=== PATIENT | female | born 1935 | race African-American/Black ===

== ENCOUNTER 2016-08-29 10:57 | Emergency (ER) | payer MEDICARE ==
--- NOTE | ~2016-08-29 | HP ---
History And Physical [place] [id number] [facility] [place]. [address] NAME: BLAYNE NICOLAS : 37 STATUS : ADM IN [facility]#: [id number] AGE: 80 ADM/REG DATE : 08/29/16 MR#: [id number] REPORT SERV DATE: 08/29/16 DICTATED BY: ANTONIETA MARTI DATE: 08/29/16 REPORT STATUS : Draft TRANSCRIBED BY: MODJason DATE: 08/29/16 DATE OF ADMISSION: 08/29/2016 This is a 80-year-old black female, who is a patient of ours at [facility]. She has end-stage renal disease. She gives a history on August 24 beginning with excess urination. Due to her renal status, she has had very little urination in the last several months but on the , began having more and then yesterday, noted a lot of blood in it. She also, over the last few days, has developed increasing pain, particularly in the left flank and left lower abdomen. She has had no temperature. She has a history of renal stones and she is also on aspirin 81 mg but no other anticoagulant. MEDICATIONS: Present medications include senna S two at bedtime; melatonin 3 mg 2 at bedtime; Zoloft 50 mg once a day; Xalatan eye drops 0.005% 1 drop in each eye at bedtime; tramadol 50 mg every 6 hours as needed; torsemide 100 mg daily on Thursday, , Thursday, and Thursday which are her nondialysis days; Renvela 800 mg t.i.d. with meals for chronic kidney disease; pantoprazole 40 mg once a day in the morning; MiraLAX 17 g in 8 ounces of liquid once a day for constipation; isosorbide mononitrate ER 30 mg 3 tablets by mouth every morning for heart disorder; glipizide 5 mg 1 before breakfast and one-half before supper; gabapentin 100 mg b.i.d. for neuropathy; donepezil 5 mg at bedtime; diltiazem 120 mg t.i.d.; clonidine patch 0.3 mg 1 patch applied every week on Thursday and then clonidine 0.1 mg p.o. daily as needed for blood pressure greater than 175/105; aspirin 81 mg daily; allopurinol 100 mg daily; and then her p.r.n. medicines include Artificial Tears, Ativan 0.5 daily as needed for anxiety; Nitrostat 0.4 under the tongue every 5 minutes up to 3 doses as needed for angina; Robitussin 5 to 10 mL every 6 to 8 hours as needed for cough; Tylenol 325 mg 1 to 2 three times a day as needed for leg pain; Zofran ODT 4 mg sublingual every 8 hours as needed for vomiting; and Voltaren 1% gel to apply 2 g to the most painful regions of the lower back and hips as needed b.i.d. 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 FAMILY HISTORY: Positive for hypertension, coronary artery disease, and diabetes. SURGICAL HISTORY: Includes the surgery for the vascular access. She has also had trigger finger surgery, tonsillectomy as a child, cataract surgery, complete hysterectomy, bilateral tubal ligation, prior to that she has had thyroidectomy and she has had a right hemicolectomy for benign reasons, pain related to, I believe a tubovillous adenoma and she has had a cholecystectomy. SOCIAL HISTORY: She is a former smoker. She is a . REVIEW OF SYSTEMS: History And Physical [address] [address] NAME: BLAYNE NICOLAS : 37 STATUS : ADM IN PAT#: [id number] AGE: 80 ADM/REG DATE : 08/29/16 MR#: [id number] REPORT SERV DATE: 08/29/16 DICTATED BY: ANTONIETA MARTI DATE: 08/29/16 REPORT STATUS : Draft TRANSCRIBED BY: JERRY DATE: 08/29/16 Besides that mentioned in the present illness, she has had no recent headaches or dysphagia or chest pain or shortness of breath or cough. She does have chronic pain now in her left hand and arm secondary to a neuropathy that has developed post vascular access surgery. She has had no nausea, vomiting, or diarrhea. She has bowel movements regularly due to the MiraLAX she is taking. She has had no recent falls. PHYSICAL EXAMINATION: VITAL SIGNS: In my clinic today, her blood pressure was 134/70, pulse rate 58, temperature 96.6, and O2 saturation 100% on room air and pain 9/10 in the left side of her abdomen. GENERAL: She is alert, conversant, clear speech, adequately hydrated. LUNGS: Clear. HEART: Regular rate and rhythm. She does have a port in the right chest wall. ABDOMEN: Soft with pain on deep palpation in the left lower quadrant. She has no rash either posteriorly or anteriorly on her abdomen or thorax or anywhere. She does have CVA tenderness with tapping on the left back. LAB DATA: [place] [address], and she is anemic with a hemoglobin of 9.2 and hematocrit of 29.2; the last one done in my center, her hemoglobin was 11 in June and hematocrit was 32. Her MCV presently is 73.4, the last one I have was 77.5 in April. Urinalysis in the office shows moderate amount of leukocytes, bloody urine, large amount of blood, moderate amount of bilirubin, large amount of ketones, and a lot of glucose; nitrite negative. IMAGING DATA: CT scan done in the emergency room on the day of admission shows a left renal mass and some significant changes in the lumbar spine, not thought to be metastatic. ASSESSMENT AND PLAN: 1. Left flank and abdominal pain of unknown cause, possibly secondary to this mass in the left kidney. We will consult Nephrology on this and proceed from there. 2. Hematuria. We will monitor H and H and check her bleeding studies and consider further consulted on that. 3. End-stage renal disease. We will attempt to get dialysis started at the hospital. 4. Hypertension presently well controlled. We will continue her torsemide, her diltiazem, and her clonidine patch. 5. Diabetes mellitus with both end-stage ophthalmic and renal disease. She has near blindness as well. Her diabetes has been well controlled on simple glipizide. We will monitor that in the hospital. 6. Anemia of chronic kidney disease with perhaps some new blood loss anemia from the hematuria. We will monitor this and treat as needed with replacement. 7. Coronary artery disease with history of diastolic CHF. She is on isosorbide, Nitrostat as needed; and has been on a baby aspirin, we will stop that for now. We will continue her pantoprazole presently. 8. Glaucoma. We will continue her Xalatan drops. 9. Gout. We will continue her allopurinol 100 mg a day. 10.Latent TB which we will try to get a complete history of but this was treated as an outpatient between December and March of this past year 2015. We will give appropriate analgesia and proceed with a workup as above. She is presently a Do Not Resuscitate History And Physical [address] [place]. [address] NAME: BLAYNE NICOLAS : 37 STATUS : ADM IN [facility]#: [id number] AGE: 80 ADM/REG DATE : 08/29/16 MR#: [id number] REPORT SERV DATE: 08/29/16 DICTATED BY: ANTONIETA MARTI DATE: 08/29/16 REPORT STATUS : Draft TRANSCRIBED BY: JERRY DATE: 08/29/16 with limited interventions. MARIAELENA/JERRY Antonieta Marti M.D. / [id number] CC: Aron Shafer M.D.
--- NOTE | ~2016-08-29 | CN ---
Consultation Report [facility] [address] [place]. [address] NAME: BLAYNE WATSON : 37 STATUS : DIS IN PAT#: [id number] AGE: 80 ADM/REG DATE : 08/29/16 MR#: [id number] REPORT SERV DATE: 09/01/16 DICTATED BY: LIU JORDAN DATE: 08/31/16 REPORT STATUS : Draft TRANSCRIBED BY: JERRY DATE: 08/31/16 DATE OF CONSULTATION: REASON FOR CONSULTATION: Hematuria and atypical cyst, left kidney. CONSULT PLACED BY: Nephrology. HISTORY OF PRESENT ILLNESS: Ms Watson is a 80-year-old black female, who has urinary incontinence and end-stage renal disease, on chronic hemodialysis three times a week. She has had some grossly bloody urine, although does not make much urine and voids incontinently into a diaper. On CT scan, she was noted to have a small left less than 2 cm left renal complex cyst. PHYSICAL EXAMINATION: GENERAL: This is a sweet little lady, in no distress. She is complaining of pain in her hip. HEAD AND NECK: Normal head and neck. ABDOMEN: Normal without tenderness. No masses. Neither the liver nor spleen is palpable. Bladder is not palpable nor percussible. EXTREMITIES: Unremarkable. GENITALIA: Normal introitus. Postmenopausal. There is no bloody urine or blood staining in the diaper (nurses report that the urine is more brownish or tea-colored then grossly bloody. STUDIES: CT scan is reviewed. Small lesion at the upper pole of the left kidney is identified. CT also reveals a markedly thickened bladder which is consistent with chronic cystitis. IMPRESSION: 1. Chronic cystitis with hematuria. 2. Atypical renal cyst. PLAN: Explained to Mrs. Watson and her daughter that it under that the findings on the CT scan were not of grave concern. It could be followed conservatively due to the very small size. As far as the blood in the urine and the chronic cystitis, I think that this can be followed as an outpatient as well. I have discussed this with the patient and her daughter will see them in the office in followup post discharge. I have also discussed this with the [facility] physician on-call, Thursday. Thank you for this consult. /JERRY Consultation Report [facility] [address] [place] [place] [address] NAME: BLAYNE WATSON : 37 STATUS : DIS IN PAT#: [id number] AGE: 80 ADM/REG DATE : 08/29/16 MR#: [id number] REPORT SERV DATE: 09/01/16 DICTATED BY: LIU JORDAN DATE: 08/31/16 REPORT STATUS : Draft TRANSCRIBED BY: JERRY DATE: 08/31/16 Liu Jordan M.D. / [id number] CC: Aron Shafer M.D.
[2016-08-29 08:30] LABS: BASOPHILS 0.2 %; BASOPHILS ABSOLUTE 0.02 10/3/uL (0.0-0.16); EOSINOPHILS 2.5 %; EOSINOPHILS ABSOLUTE 0.29 10/3/uL (0.0-0.53); HEMATOCRIT 29.2 % (36.0-48.0); HEMOGLOBIN 9.2 g/dL (12.0-16.0); IMMATURE GRANULOCYTES 0.3 %; IMMATURE GRANULOCYTES ABSOLUTE 0.03 10/3/uL (0.0-0.11); LYMPHOCYTES 24.5 %; MANUAL DIFF NO %; MEAN CORPUS HGB CONC 31.5 g/dL (32.0-36.0); MEAN CORPUSCULAR HEMOGLOB 23.1 pg (26.0-34.0); MEAN CORPUSCULAR VOLUME 73.4 fL (80-100); MEAN PLATELET VOLUME 9.3 fL (9.2-13.0); MONOCYTES 5.8 %; MONOCYTES ABSOLUTE 0.66 10/3/uL (0.21-1.20); NEUTROPHILS 66.7 %; NEUTROPHILS ABSOLUTE 7.62 10/3/uL (2.02-8.40); PLATELET COUNT 374 10/3/uL (150-400); RBC DISTRIBUTION WIDTH 15.8 % (12.0-16.0); RED CELL COUNT 3.98 10/6/uL (4.0-5.6); WHITE BLOOD CELLS 11.4 10/3/uL (4.5-10.5)
[2016-08-29 10:46] LABS: BASOPHILS 0.2 %; BASOPHILS ABSOLUTE 0.02 10/3/uL (0.0-0.16); EOSINOPHILS 2.6 %; ER CBC TAT 0 Hrs 08 Mins; HEMATOCRIT 28.9 % (36.0-48.0); HEMOGLOBIN 9.2 g/dL (12.0-16.0); IMMATURE GRANULOCYTES 0.3 %; IMMATURE GRANULOCYTES ABSOLUTE 0.03 10/3/uL (0.0-0.11); LYMPHOCYTES 24.9 %; LYMPHOCYTES ABSOLUTE 2.82 10/3/uL (0.67-4.30); MEAN CORPUS HGB CONC 31.8 g/dL (32.0-36.0); MEAN CORPUSCULAR HEMOGLOB 23.4 pg (26.0-34.0); MEAN CORPUSCULAR VOLUME 73.5 fL (80-100); MONOCYTES 6.3 %; MONOCYTES ABSOLUTE 0.72 10/3/uL (0.21-1.20); NEUTROPHILS 65.7 %; NEUTROPHILS ABSOLUTE 7.45 10/3/uL (2.02-8.40); PLATELET COUNT 358 10/3/uL (150-400); RBC DISTRIBUTION WIDTH 15.8 % (12.0-16.0); RED CELL COUNT 3.93 10/6/uL (4.0-5.6); WHITE BLOOD CELLS 11.3 10/3/uL (4.5-10.5)
[2016-08-29 10:50] LABS: MANUAL DIFF NO %
[2016-08-29 10:53] LABS: ASCORBIC ACID (UR NOT ORDER) NEG (NEG); BILIRUBIN, URINE NEGATIVE (NEG); ER URINALYSIS TAT 0 Hrs 23 Mins; KETONE, URINE TRACE MG/DL (NEG); LEUKOCYTE ESTERASE(NOT OR SMALL (NEG); NITRITE (URINE) NEG (NEG)
[2016-08-29 10:55] LABS: WBC (NOT ORDERED) (RFLEX) > 182 (0-5)
[~2016-08-29 10:57] MED LIST: ALPHAGAN EYE OP; AMARYL2 PO; AMARYL4 PO; ARICEPT5 PO; ASAB PO; ASPERCREME TOP; ATV.5 PO; AVAP150 PO; AVAPRO300 MG PO; AZOPT OPH; BACTROINT TOP; BISR PR; CALCITRIOL0.25 MCG OR; CARD120 PO; CARDIZEM LA120 MG PO; CAT1 PO; CAT2 PO; CATAPRES3 TOP; CLEOCIN300 MG PO; COLCH6 PO; CONSTULOSE PO; DEMA100 PO; DEMA10T PO; DILT-XR120 MG PO; DOK100 MG PO; DORYX100 MG PO; DSS PO; ERYTHROMYCIN OPH; ERYTHROMYCIN OPTH; EZFE 200200 MG PO; FLAG500TAB PO; FLEX PO; FLONASE NAS; HALDOL.5 PO; HALF81 PO; IMDUR30 PO; KAOPECTATE262 MG/15 PO; KLOR-CON M2020 MEQ PO; KLOR-CON20 MEQ PO; LACT30UDL PO; LANTUS SC; LEVEMIR SC; MAALOX PO; MELA3 PO; MIRALAXPKT PO; MOMUD PO; MVI PO; NEUR100 PO; NEXIUM40 PO; NORCO1 TA1 PO; NORCO1 TA2 PO; NOVOLOG SC; NYSTATPOW TOP; PHILLIPS M800 MG/5 M PO; PR12.5R PR; PROCRIT; PROCRIT IM; PROCRIT SC; PROCRIT10 IV; PROCRIT40 SC; PROTONIX PO; SEROQUEL25 PO; SPIRO25 PO; SUCR PO; SUGAR PILL PO; T PO; TUMSROLL PO; TUSSIN DM1 M1 PO; TYLENOL ARTH650 MG PO; ULTRAM50 PO; VIT D PO; VITAMIN D; VITAMIN D31000 UNIT PO; VITD PO; XALAT OPH; Z100 PO; Z300 PO; ZOFRAN4 PO; ZOLOFT25 MG PO; [UNRECOGNIZED DRUG - CODE] IM; [UNRECOGNIZED DRUG - OTHER] PR; [UNRECOGNIZED DRUG - REMARK]; [UNRECOGNIZED DRUG - REMARK]; [UNRECOGNIZED DRUG - REMARK]
[2016-08-29 11:00] LABS: A/G RATIO 0.6 (0.7-1.9); ALBUMIN 2.9 G/DL (3.5-5.0); ALKALINE PHOSPHATASE 104 U/L (45-117); BUN (BLOOD UREA NITROGEN) 34 MG/DL (6-23); CHLORIDE, SERUM 103 MMOL/L (96-112); CO2 (CARBON DIOXIDE) 25 MMOL/L (24-34); CREATININE 6.45 MG/DL (0.55-1.02); GFR AFRICAN AMERICAN 7 ML/MIN (>=60); GFR NON AFRICAN AMERICAN 6 ML/MIN (>=60); GLUCOSE, SERUM 170 MG/DL (60-99); POTASSIUM, SERUM 3.7 MMOL/L (3.5-5.3); SGOT(AST) 7 U/L (5-40); SGPT(ALT) 9 U/L (5-65); SODIUM, SERUM 140 MMOL/L (135-148); TOTAL BILIRUBIN 0.2 MG/DL (0-1.2); TOTAL PROTEIN 7.9 G/DL (6.0-8.5)
[2016-08-29] MEDS ORDERED: REFRESH OPH SO0.3 ML OPH (13:45)
[2016-08-29] MEDS ORDERED: CAT1 PO (13:47)
[2016-08-29] MEDS ORDERED: GLUCOTROL5 PO ×2 (13:52)
[2016-08-29] MEDS ORDERED: MIRALAX PO (13:55)
[2016-08-29] MEDS ORDERED: TRAMADOL PO (13:59)
[2016-08-29] MEDS ORDERED: ZOFRAN ODT4 MG PO (14:01)
[2016-08-29] MEDS ORDERED: ZIPSOR25 MG (14:03)
[2016-08-29] MEDS ORDERED: VOLTAREN1 % TOP (14:04)
[2016-08-30 14:03] LABS: HEMATOCRIT 30.1 % (36.0-48.0); HEMOGLOBIN 9.3 g/dL (12.0-16.0); MANUAL DIFF YES %; MEAN CORPUS HGB CONC 30.9 g/dL (32.0-36.0); MEAN CORPUSCULAR HEMOGLOB 23.3 pg (26.0-34.0); MEAN CORPUSCULAR VOLUME 75.3 fL (80-100); MEAN PLATELET VOLUME 9.4 fL (9.2-13.0); PLATELET COUNT 332 10/3/uL (150-400); RBC DISTRIBUTION WIDTH 15.9 % (12.0-16.0); WHITE BLOOD CELLS 8.9 10/3/uL (4.5-10.5)
[2016-08-30 14:15] LABS: ALBUMIN 2.6 G/DL (3.5-5.0); CALCIUM, SERUM 8.2 MG/DL (8.5-10.4); CHLORIDE, SERUM 102 MMOL/L (96-112); CO2 (CARBON DIOXIDE) 23 MMOL/L (24-34); GLUCOSE, SERUM 172 MG/DL (60-99); POTASSIUM, SERUM 4.4 MMOL/L (3.5-5.3); SODIUM, SERUM 137 MMOL/L (135-148)
[2016-08-30 14:16] LABS: BUN (BLOOD UREA NITROGEN) 21 MG/DL (6-23); CREATININE 4.82 MG/DL (0.55-1.02); GFR AFRICAN AMERICAN 9 ML/MIN (>=60); GFR NON AFRICAN AMERICAN 8 ML/MIN (>=60); PHOSPHORUS, SERUM 2.8 MG/DL (2.5-4.5)
[2016-08-30 14:29] LABS: BAND NEUTROPHILS 1 %; EOSINOPHILS 2 %; EOSINOPHILS ABSOLUTE (CALC) 0.18 10/3/uL (0.0-0.53); GIANT PLATELET RARE; HYPERSEGMENTED NEUT FEW (6-10%) % (0-5); LYMPHOCYTES 28 %; LYMPHOCYTES ABSOLUTE (CALC) 2.49 10/3/uL (0.67-4.30); MICROCYTES 1+ (5-10/OIF) (0-5/OIF); MONOCYTES 8 %; MONOCYTES ABSOLUTE (CALC) 0.71 10/3/uL (0.21-1.20); NEUTROPHILS ABSOLUTE (CALC) 5.52 10/3/uL (2.02-8.40); PLATELET ESTIMATE ADQ (ADEQUATE); POIKILOCYTOSIS 1+ (5-10/OIF) (0-5/OIF); SEGMENTED NEUTROPHIL (0) 61 %; TARGET CELLS FEW (3-10/OIF) (0-1/OIF); TEARDROP SHAPED RBCS OCC (0-2/OIF); TOTAL NUCLEATED CELLS 100
[2016-08-30 14:30] LABS: HYPOCHROMIA 1+ (3-10/OIF) (0-2/OIF)
[2016-08-31 07:01] LABS: BASOPHILS 0.2 %; BASOPHILS ABSOLUTE 0.02 10/3/uL (0.0-0.16); EOSINOPHILS 3.3 %; EOSINOPHILS ABSOLUTE 0.32 10/3/uL (0.0-0.53); HEMATOCRIT 27.6 % (36.0-48.0); HEMOGLOBIN 8.6 g/dL (12.0-16.0); IMMATURE GRANULOCYTES 0.3 %; IMMATURE GRANULOCYTES ABSOLUTE 0.03 10/3/uL (0.0-0.11); LYMPHOCYTES 35.1 %; LYMPHOCYTES ABSOLUTE 3.36 10/3/uL (0.67-4.30); MEAN CORPUS HGB CONC 31.2 g/dL (32.0-36.0); MEAN CORPUSCULAR HEMOGLOB 22.9 pg (26.0-34.0); MEAN CORPUSCULAR VOLUME 73.6 fL (80-100); MEAN PLATELET VOLUME 8.9 fL (9.2-13.0); MONOCYTES 7.9 %; MONOCYTES ABSOLUTE 0.76 10/3/uL (0.21-1.20); NEUTROPHILS 53.2 %; NEUTROPHILS ABSOLUTE 5.07 10/3/uL (2.02-8.40); PLATELET COUNT 352 10/3/uL (150-400); RBC DISTRIBUTION WIDTH 15.7 % (12.0-16.0); RED CELL COUNT 3.75 10/6/uL (4.0-5.6); WHITE BLOOD CELLS 9.6 10/3/uL (4.5-10.5)
[2016-08-31 07:02] LABS: MANUAL DIFF NO %
[2016-08-31 07:14] LABS: ALBUMIN 2.5 G/DL (3.5-5.0); BUN (BLOOD UREA NITROGEN) 28 MG/DL (6-23); CALCIUM, SERUM 8.3 MG/DL (8.5-10.4); CHLORIDE, SERUM 99 MMOL/L (96-112); CO2 (CARBON DIOXIDE) 25 MMOL/L (24-34); CREATININE 5.87 MG/DL (0.55-1.02); GFR AFRICAN AMERICAN 7 ML/MIN (>=60); GFR NON AFRICAN AMERICAN 6 ML/MIN (>=60); GLUCOSE, SERUM 120 MG/DL (60-99); PHOSPHORUS, SERUM 3.3 MG/DL (2.5-4.5); POTASSIUM, SERUM 4.3 MMOL/L (3.5-5.3); SODIUM, SERUM 137 MMOL/L (135-148)
[2016-08-31] MEDS ORDERED: CIP5 PO (14:03)
[2016-10-01] MEDS ORDERED: FOLIC PO (15:28)
[2016-10-01] MEDS ORDERED: NORCO1 TAB PO (15:29)
[2016-10-01] MEDS ORDERED: ROBITUSS23 PO (15:34)
[2016-10-01] MEDS ORDERED: NITROSTAT0.3 MG SL (15:36)
[2016-10-01] MEDS ORDERED: GLUCOTROL5 PO ×2 (15:36→15:37)
[2016-10-01] MEDS ORDERED: TAMIFLU30 MG PO (15:53)
[2016-10-10] MEDS ORDERED: Z100 PO (16:08)
[2016-10-10] MEDS ORDERED: REFRESH OPH SO0.3 ML OPH (16:08)
[2016-10-10] MEDS ORDERED: ASAB PO (16:09)
[2016-10-10] MEDS ORDERED: VOLTAREN1 % TOP (16:11)
[2016-10-10] MEDS ORDERED: NOVOLOG SC (16:11)
[2016-10-10] MEDS ORDERED: CEFAZ1 IV (16:12)
[2016-10-10] MEDS ORDERED: PROTONIX PO (16:13)
[2016-10-10] MEDS ORDERED: MELA3 PO (16:16)
[2016-10-10] MEDS ORDERED: MIRALAX POWDER1 PKT PO (16:18)
[2016-10-10] MEDS ORDERED: MERREM500 MG IV (16:18)
[2016-10-10] MEDS ORDERED: SENTAB PO (16:19)
[2016-10-10] MEDS ORDERED: ZOL100 PO (16:20)
[2016-10-10] MEDS ORDERED: SEVE800T PO (16:20)
[2016-10-10] MEDS ORDERED: IMDUR30 PO (16:21)
[2016-10-10] MEDS ORDERED: NEUR100 PO (16:21)
[2016-10-10] MEDS ORDERED: XALAT OPH (16:22)
[2016-10-10] MEDS ORDERED: CARD120 PO (16:22)
[2016-10-10] MEDS ORDERED: FERROUS SULF325 M1 PO (16:23)
[2016-10-10] MEDS ORDERED: ARICEPT5 PO (16:23)
[2016-10-10] MEDS ORDERED: DEMA100 PO (16:24)
[2016-10-10] MEDS ORDERED: CATAPRES2 TOP (16:25)
[2016-10-10] MEDS ORDERED: T PO (16:25)
[2016-10-10] MEDS ORDERED: ACETSUP325 PR (16:26)
[2016-10-10] MEDS ORDERED: GUAIFEN DM PO (16:27)
[2016-10-10] MEDS ORDERED: ZOFRAN4 PO (16:28)
[2016-10-10] MEDS ORDERED: ATV.5 PO (16:29)
[2016-10-10] MEDS ORDERED: NITROQUICK0.4 MG SL (16:30)
[2016-10-10] MEDS ORDERED: ATIVAN 2 MG/ML PO (16:30)
== END 2016-08-31 15:46 | disposition home or self-care (01) ==
LOC: ER 10:57
PROVIDERS: Emergency Medicine; Nurse Practitioner; Registered Nurse
DX: R10.9 Unspecified abdominal pain (principal); N18.9 Chronic kidney disease, unspecified; Z99.2 Dependence on renal dialysis; Z87.891 Personal history of nicotine dependence; Z87.442 Personal history of urinary calculi; Z88.0 Allergy status to penicillin; Z88.2 Allergy status to sulfonamides; Z88.1 Allergy status to other antibiotic agents; Z88.5 Allergy status to narcotic agent; Z91.041 Radiographic dye allergy status; Z79.899 Other long term (current) drug therapy
CPT/HCPCS: 74176; 80053; 80069; 81001; 82962; 83735; 85025; 85730; 87040; 87077; 87086; 87186; 88112; 96372; 99285; A9270-GY; G0257; J2800

== ENCOUNTER 2016-09-26 14:11 | Emergency (ER) | payer MEDICARE ==
[~2016-09-26 14:11] MED LIST changes: +CIP5 PO; +GLUCOTROL5 PO; +MIRALAX PO; +REFRESH OPH SO0.3 ML OPH; +TRAMADOL PO; +VOLTAREN1 % TOP; +ZIPSOR25 MG; +ZOFRAN ODT4 MG PO
[2016-10-01] MEDS ORDERED: FOLIC PO (15:28)
[2016-10-01] MEDS ORDERED: NORCO1 TAB PO (15:29)
[2016-10-01] MEDS ORDERED: ROBITUSS23 PO (15:34)
[2016-10-01] MEDS ORDERED: NITROSTAT0.3 MG SL (15:36)
[2016-10-01] MEDS ORDERED: GLUCOTROL5 PO ×2 (15:36→15:37)
[2016-10-01] MEDS ORDERED: TAMIFLU30 MG PO (15:53)
[2016-10-10] MEDS ORDERED: REFRESH OPH SO0.3 ML OPH (16:08)
[2016-10-10] MEDS ORDERED: Z100 PO (16:08)
[2016-10-10] MEDS ORDERED: ASAB PO (16:09)
[2016-10-10] MEDS ORDERED: NOVOLOG SC (16:11)
[2016-10-10] MEDS ORDERED: VOLTAREN1 % TOP (16:11)
[2016-10-10] MEDS ORDERED: CEFAZ1 IV (16:12)
[2016-10-10] MEDS ORDERED: PROTONIX PO (16:13)
[2016-10-10] MEDS ORDERED: MELA3 PO (16:16)
[2016-10-10] MEDS ORDERED: MIRALAX POWDER1 PKT PO (16:18)
[2016-10-10] MEDS ORDERED: MERREM500 MG IV (16:18)
[2016-10-10] MEDS ORDERED: SENTAB PO (16:19)
[2016-10-10] MEDS ORDERED: SEVE800T PO (16:20)
[2016-10-10] MEDS ORDERED: ZOL100 PO (16:20)
[2016-10-10] MEDS ORDERED: NEUR100 PO (16:21)
[2016-10-10] MEDS ORDERED: IMDUR30 PO (16:21)
[2016-10-10] MEDS ORDERED: XALAT OPH (16:22)
[2016-10-10] MEDS ORDERED: CARD120 PO (16:22)
[2016-10-10] MEDS ORDERED: ARICEPT5 PO (16:23)
[2016-10-10] MEDS ORDERED: FERROUS SULF325 M1 PO (16:23)
[2016-10-10] MEDS ORDERED: DEMA100 PO (16:24)
[2016-10-10] MEDS ORDERED: T PO (16:25)
[2016-10-10] MEDS ORDERED: CATAPRES2 TOP (16:25)
[2016-10-10] MEDS ORDERED: ACETSUP325 PR (16:26)
[2016-10-10] MEDS ORDERED: GUAIFEN DM PO (16:27)
[2016-10-10] MEDS ORDERED: ZOFRAN4 PO (16:28)
[2016-10-10] MEDS ORDERED: ATV.5 PO (16:29)
[2016-10-10] MEDS ORDERED: NITROQUICK0.4 MG SL (16:30)
[2016-10-10] MEDS ORDERED: ATIVAN 2 MG/ML PO (16:30)
== END 2016-09-26 14:20 | disposition home or self-care (01) ==
LOC: ER 14:11
DX: M25.552 Pain in left hip (principal); I50.9 Heart failure, unspecified; N18.9 Chronic kidney disease, unspecified; K21.9 Gastro-esophageal reflux disease without esophagitis; F32.9 Major depressive disorder, single episode, unspecified; F41.9 Anxiety disorder, unspecified; E11.9 Type 2 diabetes mellitus without complications; Z88.8 Allergy status to other drugs, medicaments and biological substances; Z91.041 Radiographic dye allergy status; Z88.1 Allergy status to other antibiotic agents; Z88.2 Allergy status to sulfonamides; Z88.5 Allergy status to narcotic agent; Z91.013 Allergy to seafood; Z79.82 Long term (current) use of aspirin; Z79.899 Other long term (current) drug therapy
CPT/HCPCS: 73502-LT; 80053; 85025; 96372; 99284; J1170

== ENCOUNTER 2016-10-01 16:39 | Inpatient (IN) | payer MEDICARE ==
--- NOTE | ~2016-10-01 | DS ---
Discharge Summary [facility] [address] [place]. [address] NAME: BLAYNE NICOLAS : 37 STATUS : DIS IN PAT#: [id number] AGE: 80 ADM/REG DATE : 10/02/16 MR#: [id number] REPORT SERV DATE: 10/17/16 DICTATED BY: ANTONIETA MARTI DATE: 10/16/16 REPORT STATUS : Draft TRANSCRIBED BY: JERRY DATE: 10/16/16 Data Collection from hospitalization DISCHARGE DIAGNOSES: 1. Delirium with moderate underlying dementia. 2. 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 3. End-stage renal disease. 4. Anxiety. 5. Hypertension. 6. Diabetes. 7. Coronary artery disease. 8. Diastolic congestive heart failure. 9. Blindness in the left eye. 10.Obstructive sleep apnea. 11.Glaucoma. 12.Gout. 13.Former smoker. CONSULTATIONS: 1. Jose Thompson M.D. 2. Eduardo Altamirano M.D. PROCEDURES PERFORMED: 1. Biopsy at L4-5 on 10/02/2016. 2. CT scan of the brain without contrast on 10/07/2016. PATHOLOGY: Lumbosacral vertebra CT-guided core biopsy - chronic osteomyelitis. MEDICATIONS: Zyloprim 100 mg daily; Liquid Tears two to three drops in both eyes three times a day; aspirin 81 mg daily; Ancef 2 g IV Thursday, Thursday, and Thursday at 6:00 p.m. as instructed; Voltaren apply as directed to the lower back and hips topically twice a day; Cardizem 120 mg every eight hours; Aricept 5 mg daily; ferrous sulfate 300 mg daily; NovoLog injection insulin as instructed; Imdur ER 90 mg daily; Xalatan one drop in both eyes at bedtime; melatonin 6 mg at bedtime; Merrem 500 mg IV daily as instructed; Protonix 40 mg before breakfast; MiraLAX powder one packet twice a day; Senokot two tablets twice a day; Zoloft 50 mg daily; Renvela 800 mg with meals; Demadex 100 mg on Thursday, Thursday, , Thursday as instructed; Catapres TTS 0.3 mg topically on Wednesdays at 9:00 a.m.; sodium chloride as instructed; Tylenol 650 mg orally or rectally every four hours as needed; Robitussin DM 5-10 mL every six hours as needed, nitroglycerin 0.4 mg sublingually as needed; Zofran 4 mg every four hours as needed; Catapres 0.1 mg daily as needed for blood pressure greater than 175/105; Neurontin 100 mg twice a day, and lorazepam as instructed. CONDITION AT DISCHARGE: Stable. DISPOSITION: The patient was discharged to [facility] on a renal diet with activities as instructed. HOSPITAL COURSE: This is a 80-year-old female who is a patient of ours at [address] [address] NAME: BLAYNE NICOLAS : 37 STATUS : DIS IN [facility]#: [id number] AGE: 80 ADM/REG DATE : 10/02/16 MR#: [id number] REPORT SERV DATE: 10/17/16 DICTATED BY: ANTONIETA MARTI DATE: 10/16/16 REPORT STATUS : Draft TRANSCRIBED BY: JERRY DATE: 10/16/16 [facility]. She began having pain in both hips and in her lower back in early July of this year. She has a history of osteoarthritis with previous pain in the right hip and bilateral knee replacements, but the left hip pain started two to three months prior to this admission. It improved at times and then worsened. She has had no recent injury. She has had no recent fever. She has had a slight elevation in her white count up to 11,000 - 12,000. Her pain increased over the past week and she went to the emergency room. She was scheduled for an MRI of the lower back, which was done on the day prior to this admission. The radiologist felt there were signs of chronic diskitis and possible osteomyelitis. She was admitted to the hospital at this time for further evaluation and treatment. Upon admission, blood and urine cultures were obtained. It was felt that she would need to undergo a CT-guided biopsy. She would continue dialysis. She was going to be placed on pain medication. She was given Percocet and would receive IV morphine as needed. She is on multiple medications for her hypertension. We would continue torsemide, isosorbide, and diltiazem. Clonidine patch would be given as well as needed. Glipizide was continued for her diabetes. The last hemoglobin A1c in June had been 6.5. Senna S and MiraLAX were continued for chronic constipation. She has a history of latent tuberculosis and was treated in December of 2015 with INH and Rifampin, this was ordered for three months. The patient has a DNR code status with limited intervention. She has said that she would want to be intubated for short time if the process appeared reversible. She was seen in consultation by Dr. Eduardo Altamirano. She appeared uncomfortable. She did complain of pain. Her lungs were clear. She had no dyspnea. Dialysis therapy was going to be performed. The following day, she was seen by Dr. Jose Thompson for evaluation and treatment of spine infection. She started having low back pain several months ago, that had gotten increasingly severe. An MRI of the L4-5 area had revealed disk spaces expanded with osseous destruction of the surrounding endplate, all of which suggest diskitis and adjacent spinal osteomyelitis. She has had no fevers, chills, or night sweats. She has had no malaise or flu-like symptoms. She does have a dialysis catheter. White blood cell count was 11.2. Creatinine level was 4.87. Antibiotics would be held. CT-guided biopsy for pathology and cultures would be performed. It was felt that potential sources would be past urinary tract infection, hemodialysis catheter, and exposure to tuberculosis and spinal tuberculosis would have to be considered. Biopsy of the L4-5 level was performed. Supportive care continued. Procalcitonin level was 0.85. Her pain was currently controlled. Sedimentation rate was elevated as well as CRP. Blood pressure was well controlled. Diabetes was well controlled. On 10/03/2016, she said she had rested well. Her pain was controlled. She was afebrile. White blood cell count had improved and was now 10.4. She did receive Epogen. Vancomycin was continued as well as Cefepime. On 10/04/2016, she had no new symptoms. She remained afebrile. Her lungs were clear. Antibiotics were continued. It was felt that she would need six weeks of IV antibiotics. Cultures were pending. Her pain was controlled. Blood pressure was well controlled. The next day, pain control was better. She had a normal respiratory effort. Her lungs were clear. Hemodialysis therapy continued. The patient was placed on Ancef and meropenem. She was evaluated by Physical Therapy. Blood cultures were negative. On 10/06/2016, contact precautions were in place. SSRI was started for anxiety. The next day, she seemed more confused. White blood cell count was 10.4. It was felt that her confusion was probably secondary to pain medication. Ancef and meropenem were continued. Discharge planning was Discharge Summary [address] [place]. [address] NAME: BLAYNE NICOLAS : 37 STATUS : DIS IN PAT#: [id number] AGE: 80 ADM/REG DATE : 10/02/16 MR#: [id number] REPORT SERV DATE: 10/17/16 DICTATED BY: ANTONIETA MARTI DATE: 10/16/16 REPORT STATUS : Draft TRANSCRIBED BY: JERRY DATE: 10/16/16 performed. A PICC line was inserted. On 10/08/2016, hemodialysis therapy continued. CT scan of the brain without contrast showed moderate cerebral atrophy with periventricular leukoencephalopathy. There was intracranial atherosclerosis. No acute intracranial process was identified. Gabapentin was increased. Antibiotics were continued. Discharge instructions were given. Due to her improved and stable condition, she was discharged to [facility] with the above-stated instructions. Information collected by: Magda Hughse I submit the above information as my discharge summary. DALTON/JERRY Antonieta Marti M.D. / [id number] CC: Aron Robbins M.D. Nathan Chamberlain, M.D. [facility]
--- NOTE | ~2016-10-01 | CN ---
Consultation Report [facility] [address] [place]. [address] NAME: BLAYNE NICOLAS : 37 STATUS : ADM Kate PAT#: [id number] AGE: 80 ADM/REG DATE : 10/01/16 MR#: [id number] REPORT SERV DATE: 10/02/16 DICTATED BY: LAITH DALLAS DATE: 10/02/16 REPORT STATUS : Draft TRANSCRIBED BY: JERRY DATE: 10/02/16 INFECTIOUS DISEASE CONSULT. DATE OF CONSULTATION: REFERRING PHYSICIAN: Sobia Marti M.D. REASON FOR REFERRAL: Evaluation and treatment of spine infection. HISTORY OF PRESENT ILLNESS: The patient is a 80-year-old female with a history of hypertension, coronary artery disease. She has diabetes that has been complicated by retinopathy, blindness in one eye. She has nephropathy and end-stage renal disease, for which she was started on dialysis a year ago and obstructive sleep apnea. She still has a temporary dialysis catheter in the right chest and attempt at establishing a fistula in the left upper extremity caused the neuropathy in her hand and that has been abandoned. She has a history of a positive PPD many years ago. She thinks that she got prophylactic treatment then and then received it [facility] now. She has not been diagnosed with active tuberculosis. She began having lower back pain several months ago that has gotten increasingly severe. An MRI was done here on the 7th of her spine and in the L4-5 area, the disk spaces expanded with osseous destruction of the surrounding endplates, all of which suggest a diskitis and adjacent spinal osteomyelitis. She has had no fevers, chills, or night sweats. No malaise or flu-like symptoms. She has had no skin lesions or boils. She does have a dialysis catheter. She thinks she has been treated for urinary tract infection a couple of times in the recent months and no other active infections or use of antibiotics. She has had no past trauma to her spine and has never had spinal surgery before. She has had bilateral knee replacements, but she says those are working well not bothering her with the exception that since the low back pain that started has began to radiate down and through her entire left leg. PAST MEDICAL HISTORY: Otherwise unremarkable. MEDICATIONS: She did receive a partial dose of vancomycin in the emergency room yesterday. ALLERGIES: SHE IS ALLERGIC TO PENICILLIN AND SULFA, BOTH OF WHICH CAUSED A RASH WITH POSSIBLE REACTION TO LEVAQUIN IN THE PAST, ALTHOUGH SHE HAS TAKEN CIPRO WITHOUT INCIDENT. SHE IS [facility]. SHE LIVES AT HOME WITH HER DAUGHTER, NONSMOKER. NO HISTORY OF ALCOHOL OR SUBSTANCE ABUSE. FAMILY HISTORY: Noncontributory. PHYSICAL EXAMINATION: GENERAL: A nontoxic, elderly -Tajik female, in no acute distress. She is alert and oriented x3. VITAL SIGNS: Her temperature here has been normal. It is 98.6, pulse 65, respirations 12, blood pressure 115/55, weight is 86 kg. Consultation Report [place] [id number] [facility] [place]. [address] NAME: BLAYNE NICOLAS : 37 STATUS : ADM Kate PAT#: [id number] AGE: 80 ADM/REG DATE : 10/01/16 MR#: [id number] REPORT SERV DATE: 10/02/16 DICTATED BY: LAITH DALLAS DATE: 10/02/16 REPORT STATUS : Draft TRANSCRIBED BY: JERRY DATE: 10/02/16 HEENT: Sclerae are clear. No oral lesions. LUNGS: Clear. HEART: Regular. ABDOMEN: Soft, nontender. Positive bowel sounds. EXTREMITIES: On her extremities, she has no swollen, red, or hot joints. No lesions on her fingers or toes. No rashes, boils, or sores noted. LABORATORY DATA: White blood cell count 11.2, hematocrit 28, platelets 279, unremarkable differential on the white blood cell count. BUN and creatinine 23 and 4.87. Procalcitonin 0.85. IMPRESSION: Lumbar diskitis, spinal osteomyelitis. Potential sources would be past urinary tract infection, hemodialysis catheter, for the exposure to tuberculosis, spinal tuberculosis has to be considered. RECOMMENDATIONS: 1. Hold antibiotics. 2. CT-guided biopsy for pathology and cultures. 3. Follow the patient with you. I appreciate very much your consulting on this patient. RANDOLPH Laith Dallas M.D. / [id number] CC: Sobia Marti M.D.
--- NOTE | ~2016-10-01 | CN ---
Consultation Report [facility] [address] [place]. [address] NAME: BLAYNE NICOLAS : 36 STATUS : DIS IN PAT#: [id number] AGE: 80 ADM/REG DATE : 10/02/16 MR#: [id number] REPORT SERV DATE: 10/24/16 DICTATED BY: SEE NUNEZ DATE: 10/23/16 REPORT STATUS : Draft TRANSCRIBED BY: JERRY DATE: 10/23/16 INPATIENT SPINE SURGERY CONSULTATION DATE OF CONSULTATION: REASON FOR CONSULTATION: L4-5 osteodiskitis. HISTORY OF PRESENT ILLNESS: The patient is a 80-year-old with approximately two-week history of osteodiskitis in the lumbar spine. She was discharged recently from the hospital. She was readmitted today. She has intractable back pain and left lower extremity pain to the point that she is unable to ambulate she says secondary to the pain. REVIEW OF SYSTEMS: She denies chest pain or shortness of breath. ALLERGIES: MULTIPLE AND ARE ON THE CHART AND HAVE BEEN REVIEWED. HOME MEDICATIONS: Include Tylenol, allopurinol, Artificial Tears, aspirin, Ancef, Catapres, Voltaren, Cardizem, Aricept, iron, Neurontin, Hardin, NovoLog, Imdur, Xalatan, Ativan, melatonin, meropenem, multivitamin, nitroglycerin, Zofran, Protonix, MiraLAX, Senokot, Zoloft, Renvela, Demadex, and guaifen. PAST MEDICAL HISTORY: Includes mild dementia, osteomyelitis, end-stage renal disease, anxiety, hypertension, diabetes, coronary artery disease, congestive heart failure, blindness in the left eye, sleep apnea, glaucoma, and gout. PHYSICAL EXAMINATION: GENERAL: The patient is in no acute distress at this time. Gait was not tested. NEUROLOGIC: Strength in lower extremities remains intact. No focal deficits. She does have increased pain with motion. IMAGING: I have reviewed both the CT scan as well as the MRI scan of the lumbar spine. She does have osteodiskitis at the L4-L5 level with some bone destruction at both L4 and L5. ASSESSMENT: Chronic osteodiskitis, L4-L5. PLAN: I had a long discussion with the patient and her son. I discussed that in some of these cases long-term IV antibiotics of at least three months can be successful. We discussed the option of a brace to help with pain control and also help with some healing versus surgery given the fact that there is a fair amount of bony destruction that seems to have progressed some. I believe that it is more likely than not that in order for this infection to heal adequately, Surgery would be necessary. I discussed that in many cases it would involve both in the anterior partial corpectomy and fusion and posterior stabilization, but given her multiple medical comorbidities, if surgery was to be performed, Consultation Report [place] [id number]. [address] NAME: BLAYNE NICOLAS : 36 STATUS : DIS IN PAT#: [id number] AGE: 80 ADM/REG DATE : 10/02/16 MR#: [id number] REPORT SERV DATE: 10/24/16 DICTATED BY: SEE NUNEZ DATE: 10/23/16 REPORT STATUS : Draft TRANSCRIBED BY: JERRY DATE: 10/23/16 I would recommend as minimal approach as possible to minimize risk. This would be a posterior approach with a minimally invasive debridement and interbody fusion with percutaneous screw fixation to minimize the amount of the risk associated with the procedure if she decided to proceed. She can discuss this with the Hospitalist as well as Infectious Disease team as well as her family, and then she is going to let us know how she would like to proceed. BARRETT/JERRY See Nunez, DO / [id number] CC: Sobia Marti M.D.
--- NOTE | ~2016-10-01 | HP ---
History And Physical [place] [id number] [facility] [place]. [address] NAME: BLAYNE NICOLAS : 36 STATUS : ADM Kate PAT#: [id number] AGE: 80 ADM/REG DATE : 10/01/16 MR#: [id number] REPORT SERV DATE: 10/02/16 DICTATED BY: ANTONIETA MARTI DATE: 10/01/16 REPORT STATUS : Draft TRANSCRIBED BY: MODJason DATE: 10/01/16 DATE OF ADMISSION: 10/01/2016 HISTORY OF PRESENT ILLNESS: She is a 80-year-old patient of ours at [facility]. She began having pain in both hips and in her lower back in early July of this year. She has a history of osteoarthritis with previous pain in the right hip and bilateral knee replacements, but the left hip pain started 2 to 3 months ago. It has improved at times and then worsened. She has had no recent injury. She has had no recent fever. She has had a slight elevation in her white count up to 11,000 to 12,000. Her pain increased such in the last week that she went to the emergency room, and then was scheduled for an MRI of the lower back which was done yesterday on 09/30/2016, and I received a call from the radiologist that there were signs of chronic diskitis and possible osteomyelitis. She is being admitted for further evaluation of that and for treatment of her pain. PAST MEDICAL HISTORY: Also positive for end-stage renal disease, she is on dialysis and has chronic anemia. She has hypertension, coronary artery disease, diastolic heart failure, history of diabetes with blindness in the left eye and the renal problems probably from it and hypertension combined. She has a history of cognitive disorder of renal calculi and obstructive sleep apnea with glaucoma and gout. ALLERGIES: HER ALLERGIES THAT ARE REPORTED ON HER CHART BEING PENICILLIN; SULFA; LEVAQUIN, ALTHOUGH SHE HAS BEEN ABLE TO TAKE CIPRO WITHOUT PROBLEMS; BETA-BLOCKERS; HYDRALAZINE; CODEINE; IODINE; AND KAPIDEX WHICH IS A PPI. MEDICATIONS: Her medication list consisted of donepezil 5 mg daily, folic acid 1 mg daily, and iron sulfate 325 daily, Lortab recently 10 mg per 325 one every 6 hours as needed. She has just completed a course of Tamiflu as prophylaxis as she was exposed to the flu. She also takes senna S two tablets twice a day and MiraLAX 17 g in 8 ounces of liquid b.i.d. She has a prescription for Voltaren 1% gel to be applied to the painful regions of her hips and back twice a day. She is on melatonin 6 mg at bedtime, Zoloft 50 mg daily, and Xalatan 0.005% eye drops one drop in each eye at bedtime for glaucoma. She has torsemide 100 mg that she takes on Tuesdays, , Saturdays, and Sundays on her non-dialysis days for edema. She has p.r.n. Robitussin. She is on Renvela 800 mg t.i.d. with meals for her chronic kidney disease. She is also on pantoprazole 40 mg daily, isosorbide mononitrate ER 30 mg 3 tablets every morning for heart, glipizide 5 mg b.i.d., gabapentin 100 mg b.i.d., diltiazem 120 mg t.i.d., clonidine patch 0.3 mg every week on Thursday, aspirin 81 mg a day, allopurinol 100 mg a day, artificial tears p.r.n., clonidine 0.1 daily p.r.n. blood pressure greater than 175/105, and p.r.n. nitroglycerin. FAMILY HISTORY: Positive for hypertension coronary artery disease, diabetes, and renal failure. SOCIAL HISTORY: She is a and is a former smoker. She lives with her daughter, Arelis, and has attentive sons and daughters. History And Physical [address] [address] NAME: BLAYNE NICOLAS : 36 STATUS : ADM Kate PAT#: [id number] AGE: 80 ADM/REG DATE : 10/01/16 MR#: [id number] REPORT SERV DATE: 10/02/16 DICTATED BY: ANTONIETA MARTI DATE: 10/01/16 REPORT STATUS : Draft TRANSCRIBED BY: JERRY DATE: 10/01/16 PAST SURGICAL HISTORY: Prior surgeries include bilateral total knee replacements, cholecystectomy, tonsillectomy, cataract surgery, complete hysterectomy, bilateral tubal ligation prior to that, thyroidectomy, trigger finger repair, right hemicolectomy in 11/2014 after which she has really had minimal chronic debilitating illnesses, that was done for benign reasons, and she has had an access placed in her left arm for her dialysis; however, she developed a subclavian steal syndrome and has had some resulting left hand weakness and neuropathic pain since. REVIEW OF SYSTEMS: Besides that mentioned above, again there is no fever. She has not had any chest pain, increased cough, or increased shortness of breath. She has had no nausea, vomiting, or diarrhea. She does have chronic constipation. She has very little urine output usually, but in August of this year, she did have some hematuria and was found to have a UTI on the hospital admission then. She also had a complicated cyst on the left then, and this was evaluated with Dr. Knight. The pain that she has had recently that has worsened in the last week involves her left lower back, goes into the left buttock, and then down to the lateral side and the anterior side of her left leg all the way to the foot. PHYSICAL EXAMINATION: VITAL SIGNS: Temperature is 98.1, blood pressure 156/83, heart rate 64, O2 saturation 100% on room air, and respiratory rate 20. GENERAL: She is very uncomfortable on first being seen with the pain described as 10 in 10. However, after 10 of hydrocodone, this improved, and she would like comfortably in the bed. She is a well-groomed with good hygiene black female. SKIN: Good turgor. NECK: Supple. LUNGS: Clear. HEART: Regular rate and rhythm. ABDOMEN: Soft and nontender with normal bowel sounds. MUSCULOSKELETAL: Her back, there is no sign of a rash. She is uncomfortable when turned to the side to evaluate her, this causes some pain in the left back. She is nonambulatory. She is obese. She has edema of both lower extremities chronically. Her left hand has reduced range of motion and is tender to the touch, but she is able to move the fingers and the thumb of her left hand gently. LABORATORY DATA: Again, MRI of the lumbar spine done on the showed chronic diskitis with the plates partially destroyed of the facet and perhaps this is at the L4-L5 level and perhaps into the L5-S1. ASSESSMENT AND PLAN: 1. Chronic lumbar diskitis with osteomyelitis. The plan at this point is to consult Infectious Disease, draw a sedimentation rate and CRP, obtain blood cultures and urine cultures, and then we will schedule her for a CT-guided needle biopsy of the area tomorrow. At that time, cultures will be done and histology as well as fungal cultures, bacterial cultures, and mycobacterial and AFB smears and stains. 2. End-stage renal disease. The plan is to proceed with dialysis today and to consult Nephrology. History And Physical [address] [place]. [address] NAME: BLAYNE NICOLAS : 37 STATUS : ADM Kate PAT#: [id number] AGE: 80 ADM/REG DATE : 10/01/16 MR#: [id number] REPORT SERV DATE: 10/02/16 DICTATED BY: ANTONIETA MARTI DATE: 10/01/16 REPORT STATUS : Draft TRANSCRIBED BY: JERRY DATE: 10/01/16 3. Pain related to #1 above, and I will call and get her on some pain medicine for this; this has not been done. We will give her Percocet and also IV morphine as needed. 4. Hypertension. She is on multiple medications for this, we will monitor and continue her torsemide, her isosorbide, her diltiazem, and her clonidine patch for that and give her p.r.n. clonidine as well. 5. Diabetes. She will continue her glipizide for that. She has been controlled on that in the office with her last A1c in 06/2016 being 6.5. 6. Left hand neuropathy, additional awareness of that to prevent any further pain or injury with that. 7. Chronic constipation, we will continue her senna S and MiraLAX for that. 8. History of latent tuberculosis. She was treated in 12/2015 with INH and rifampin, this was ordered for 3 months. At that time, she was at [facility] on [address], and I am in the process of confirming that she receive the whole 3 months of that medication. She has chosen at her preference as her goal to be a DNR with limited interventions. 9. DNR with limited interventions. She has said she would want to be intubated for a short time if the process appears reversible. MARIAELENA/JERRY Antonieta Marti M.D. / [id number] CC: Antonieta Marti M.D.
[~2016-10-01 16:39] MED LIST changes: +FOLIC PO; +NITROSTAT0.3 MG SL; +NORCO1 TAB PO; +ROBITUSS23 PO; +TAMIFLU30 MG PO
[2016-10-01 16:47] LABS: BASOPHILS 0.2 %; BASOPHILS ABSOLUTE 0.02 10/3/uL (0.0-0.16); EOSINOPHILS 2.7 %; EOSINOPHILS ABSOLUTE 0.29 10/3/uL (0.0-0.53); ER CBC TAT 0 Hrs 11 Mins; HEMATOCRIT 28.9 % (36.0-48.0); HEMOGLOBIN 9.1 g/dL (12.0-16.0); IMMATURE GRANULOCYTES 0.2 %; IMMATURE GRANULOCYTES ABSOLUTE 0.02 10/3/uL (0.0-0.11); LYMPHOCYTES 37.1 %; LYMPHOCYTES ABSOLUTE 3.93 10/3/uL (0.67-4.30); MANUAL DIFF NO %; MEAN CORPUS HGB CONC 31.5 g/dL (32.0-36.0); MEAN CORPUSCULAR HEMOGLOB 23.3 pg (26.0-34.0); MEAN CORPUSCULAR VOLUME 73.9 fL (80-100); MEAN PLATELET VOLUME 9.5 fL (9.2-13.0); MONOCYTES 4.2 %; MONOCYTES ABSOLUTE 0.44 10/3/uL (0.21-1.20); NEUTROPHILS 55.6 %; NEUTROPHILS ABSOLUTE 5.88 10/3/uL (2.02-8.40); PLATELET COUNT 341 10/3/uL (150-400); RBC DISTRIBUTION WIDTH 17.1 % (12.0-16.0); RED CELL COUNT 3.91 10/6/uL (4.0-5.6); WHITE BLOOD CELLS 10.6 10/3/uL (4.5-10.5)
[2016-10-01 16:48] LABS: INTERNATIONAL NORMAL RATI 1.1 UNITS (-); PARTIAL THROMBO TIME 30.3 SEC (22.5-37.2); PROTIME (NOT ORD) 13.6 SEC (12.0-14.5)
[2016-10-01 17:00] LABS: A/G RATIO 0.7 (0.7-1.9); ALKALINE PHOSPHATASE 96 U/L (45-117); CALCIUM, SERUM 8.1 MG/DL (8.5-10.4); CHLORIDE, SERUM 100 MMOL/L (96-112); CO2 (CARBON DIOXIDE) 25 MMOL/L (24-34); GLOBULIN 4.7 G/DL (2.5-4.1); POTASSIUM, SERUM 3.8 MMOL/L (3.5-5.3); SGOT(AST) 7 U/L (5-40); SGPT(ALT) 11 U/L (5-65); SODIUM, SERUM 139 MMOL/L (135-148); TOTAL BILIRUBIN 0.4 MG/DL (0-1.2); TOTAL PROTEIN 7.8 G/DL (6.0-8.5)
[2016-10-01 17:01] LABS: ALBUMIN 3.1 G/DL (3.5-5.0); BUN (BLOOD UREA NITROGEN) 38 MG/DL (6-23); CREATININE 6.81 MG/DL (0.55-1.02); GFR AFRICAN AMERICAN 6 ML/MIN (>=60); GFR NON AFRICAN AMERICAN 5 ML/MIN (>=60); GLUCOSE, SERUM 61 MG/DL (60-99)
[2016-10-01 17:02] LABS: LACTATE 0.9 MMOL/L (0.3-2.4)
[2016-10-01 17:36] LABS: PROCALCITONIN 0.85 ng/mL (<0.5)
[2016-10-01 23:02] LABS: C-REACTIVE PROTEIN 50.1 MG/L (<8.0); PHOSPHORUS, SERUM 4.9 MG/DL (2.5-4.5)
[2016-10-01 23:30] LABS: SED RATE 87 MM/HR (0-20)
[2016-10-02 05:12] LABS: BASOPHILS 0.3 %; BASOPHILS ABSOLUTE 0.03 10/3/uL (0.0-0.16); EOSINOPHILS ABSOLUTE 0.23 10/3/uL (0.0-0.53); HEMOGLOBIN 8.6 g/dL (12.0-16.0); IMMATURE GRANULOCYTES 0.4 %; IMMATURE GRANULOCYTES ABSOLUTE 0.05 10/3/uL (0.0-0.11); LYMPHOCYTES 33.5 %; LYMPHOCYTES ABSOLUTE 3.76 10/3/uL (0.67-4.30); MANUAL DIFF NO %; MEAN CORPUS HGB CONC 30.7 g/dL (32.0-36.0); MEAN CORPUSCULAR HEMOGLOB 22.9 pg (26.0-34.0); MEAN CORPUSCULAR VOLUME 74.5 fL (80-100); MEAN PLATELET VOLUME 8.9 fL (9.2-13.0); MONOCYTES 4.8 %; MONOCYTES ABSOLUTE 0.54 10/3/uL (0.21-1.20); NEUTROPHILS ABSOLUTE 6.61 10/3/uL (2.02-8.40); PLATELET COUNT 279 10/3/uL (150-400); RBC DISTRIBUTION WIDTH 17.4 % (12.0-16.0); RED CELL COUNT 3.76 10/6/uL (4.0-5.6); WHITE BLOOD CELLS 11.2 10/3/uL (4.5-10.5)
[2016-10-02 05:14] LABS: INTERNATIONAL NORMAL RATI 1.2 UNITS (-); PROTIME (NOT ORD) 14.8 SEC (12.0-14.5)
[2016-10-02 05:24] LABS: A/G RATIO 0.6 (0.7-1.9); ALBUMIN 2.7 G/DL (3.5-5.0); CALCIUM, SERUM 7.7 MG/DL (8.5-10.4); CHLORIDE, SERUM 101 MMOL/L (96-112); CO2 (CARBON DIOXIDE) 26 MMOL/L (24-34); GLOBULIN 4.4 G/DL (2.5-4.1); POTASSIUM, SERUM 3.8 MMOL/L (3.5-5.3); SGOT(AST) 4 U/L (5-40); SGPT(ALT) 8 U/L (5-65); SODIUM, SERUM 139 MMOL/L (135-148); TOTAL BILIRUBIN 0.2 MG/DL (0-1.2); TOTAL PROTEIN 7.1 G/DL (6.0-8.5)
[2016-10-02 05:25] LABS: ALKALINE PHOSPHATASE 83 U/L (45-117); BUN (BLOOD UREA NITROGEN) 23 MG/DL (6-23); CREATININE 4.87 MG/DL (0.55-1.02); GFR AFRICAN AMERICAN 9 ML/MIN (>=60); GFR NON AFRICAN AMERICAN 8 ML/MIN (>=60); GLUCOSE, SERUM 160 MG/DL (60-99); PHOSPHORUS, SERUM 3.7 MG/DL (2.5-4.5)
[2016-10-02 06:15] LABS: PLATELET ESTIMATE ADQ (ADEQUATE)
[2016-10-02 06:17] LABS: POLYCHROMASIA 1+ (2-5/OIF) (0-1/OIF); TARGET CELLS FEW (3-10/OIF) (0-1/OIF)
[2016-10-02 10:53] LABS: ASCORBIC ACID (UR NOT ORDER) NEG (NEG); BILIRUBIN, URINE NEGATIVE (NEG); KETONE, URINE NEGATIVE (NEG); LEUKOCYTE ESTERASE(NOT OR LARGE (NEG); WBC (NOT ORDERED) (RFLEX) 64 (0-5)
[2016-10-03 04:48] LABS: ALBUMIN 2.5 G/DL (3.5-5.0); CALCIUM, SERUM 7.7 MG/DL (8.5-10.4); CHLORIDE, SERUM 102 MMOL/L (96-112); CO2 (CARBON DIOXIDE) 24 MMOL/L (24-34); SODIUM, SERUM 139 MMOL/L (135-148)
[2016-10-03 04:50] LABS: BUN (BLOOD UREA NITROGEN) 33 MG/DL (6-23); GFR AFRICAN AMERICAN 7 ML/MIN (>=60); GFR NON AFRICAN AMERICAN 6 ML/MIN (>=60); GLUCOSE, SERUM 80 MG/DL (60-99); PHOSPHORUS, SERUM 5.3 MG/DL (2.5-4.5)
[2016-10-03 05:12] LABS: BASOPHILS 0.2 %; BASOPHILS ABSOLUTE 0.02 10/3/uL (0.0-0.16); EOSINOPHILS 2.7 %; EOSINOPHILS ABSOLUTE 0.28 10/3/uL (0.0-0.53); HEMATOCRIT 25.4 % (36.0-48.0); LYMPHOCYTES 37.5 %; LYMPHOCYTES ABSOLUTE 3.89 10/3/uL (0.67-4.30); MEAN CORPUS HGB CONC 31.5 g/dL (32.0-36.0); MEAN CORPUSCULAR HEMOGLOB 22.9 pg (26.0-34.0); MEAN CORPUSCULAR VOLUME 72.8 fL (80-100); MEAN PLATELET VOLUME 9.4 fL (9.2-13.0); MONOCYTES 5.1 %; MONOCYTES ABSOLUTE 0.53 10/3/uL (0.21-1.20); NEUTROPHILS 54.5 %; NEUTROPHILS ABSOLUTE 5.66 10/3/uL (2.02-8.40); PLATELET COUNT 303 10/3/uL (150-400); RBC DISTRIBUTION WIDTH 17.3 % (12.0-16.0); RED CELL COUNT 3.49 10/6/uL (4.0-5.6); WHITE BLOOD CELLS 10.4 10/3/uL (4.5-10.5)
[2016-10-03 05:20] LABS: MANUAL DIFF NO %
[2016-10-05 07:06] LABS: BASOPHILS 0.2 %; BASOPHILS ABSOLUTE 0.02 10/3/uL (0.0-0.16); EOSINOPHILS 3.8 %; EOSINOPHILS ABSOLUTE 0.41 10/3/uL (0.0-0.53); HEMOGLOBIN 8.8 g/dL (12.0-16.0); IMMATURE GRANULOCYTES 0.5 %; IMMATURE GRANULOCYTES ABSOLUTE 0.05 10/3/uL (0.0-0.11); LYMPHOCYTES 27.4 %; LYMPHOCYTES ABSOLUTE 2.98 10/3/uL (0.67-4.30); MEAN CORPUS HGB CONC 31.4 g/dL (32.0-36.0); MEAN CORPUSCULAR HEMOGLOB 23.3 pg (26.0-34.0); MEAN CORPUSCULAR VOLUME 74.3 fL (80-100); MEAN PLATELET VOLUME 9.4 fL (9.2-13.0); MONOCYTES 6.3 %; MONOCYTES ABSOLUTE 0.69 10/3/uL (0.21-1.20); NEUTROPHILS 61.8 %; NEUTROPHILS ABSOLUTE 6.72 10/3/uL (2.02-8.40); PLATELET COUNT 291 10/3/uL (150-400); RBC DISTRIBUTION WIDTH 17.4 % (12.0-16.0); RED CELL COUNT 3.77 10/6/uL (4.0-5.6); WHITE BLOOD CELLS 10.9 10/3/uL (4.5-10.5)
[2016-10-05 07:07] LABS: MANUAL DIFF NO %
[2016-10-05 07:09] LABS: BUN (BLOOD UREA NITROGEN) 38 MG/DL (6-23); CALCIUM, SERUM 8.2 MG/DL (8.5-10.4); CHLORIDE, SERUM 102 MMOL/L (96-112); CO2 (CARBON DIOXIDE) 21 MMOL/L (24-34); CREATININE 6.27 MG/DL (0.55-1.02); GFR AFRICAN AMERICAN 7 ML/MIN (>=60); GFR NON AFRICAN AMERICAN 6 ML/MIN (>=60); GLUCOSE, SERUM 74 MG/DL (60-99); POTASSIUM, SERUM 4.5 MMOL/L (3.5-5.3); SODIUM, SERUM 137 MMOL/L (135-148)
[2016-10-06 05:54] LABS: BASOPHILS 0.2 %; BASOPHILS ABSOLUTE 0.02 10/3/uL (0.0-0.16); EOSINOPHILS 3.5 %; EOSINOPHILS ABSOLUTE 0.36 10/3/uL (0.0-0.53); HEMATOCRIT 26.8 % (36.0-48.0); HEMOGLOBIN 8.5 g/dL (12.0-16.0); IMMATURE GRANULOCYTES 0.3 %; IMMATURE GRANULOCYTES ABSOLUTE 0.03 10/3/uL (0.0-0.11); LYMPHOCYTES 26.4 %; LYMPHOCYTES ABSOLUTE 2.73 10/3/uL (0.67-4.30); MEAN CORPUS HGB CONC 31.7 g/dL (32.0-36.0); MEAN CORPUSCULAR HEMOGLOB 23.5 pg (26.0-34.0); MEAN PLATELET VOLUME 9.2 fL (9.2-13.0); MONOCYTES ABSOLUTE 0.41 10/3/uL (0.21-1.20); NEUTROPHILS 65.6 %; PLATELET COUNT 305 10/3/uL (150-400); RBC DISTRIBUTION WIDTH 17.3 % (12.0-16.0); RED CELL COUNT 3.62 10/6/uL (4.0-5.6); WHITE BLOOD CELLS 10.4 10/3/uL (4.5-10.5)
[2016-10-06 06:07] LABS: MANUAL DIFF NO %
[2016-10-06 06:17] LABS: ALBUMIN 2.5 G/DL (3.5-5.0); CHLORIDE, SERUM 101 MMOL/L (96-112); CO2 (CARBON DIOXIDE) 21 MMOL/L (24-34); POTASSIUM, SERUM 4.6 MMOL/L (3.5-5.3); SODIUM, SERUM 135 MMOL/L (135-148)
[2016-10-06 06:18] LABS: BUN (BLOOD UREA NITROGEN) 44 MG/DL (6-23); CREATININE 7.09 MG/DL (0.55-1.02); GFR AFRICAN AMERICAN 6 ML/MIN (>=60); GFR NON AFRICAN AMERICAN 5 ML/MIN (>=60); GLUCOSE, SERUM 108 MG/DL (60-99); PHOSPHORUS, SERUM 4.2 MG/DL (2.5-4.5)
[2016-10-06 06:49] LABS: ANISOCYTOSIS 1+ (5-10/OIF) (0-5/OIF); MICROCYTES 1+ (5-10/OIF) (0-5/OIF); PLATELET ESTIMATE ADQ (ADEQUATE); POLYCHROMASIA 1+ (2-5/OIF) (0-1/OIF)
[2016-10-07 13:04] LABS: BASOPHILS 0.2 %; BASOPHILS ABSOLUTE 0.02 10/3/uL (0.0-0.16); EOSINOPHILS 2.5 %; EOSINOPHILS ABSOLUTE 0.33 10/3/uL (0.0-0.53); HEMOGLOBIN 9.3 g/dL (12.0-16.0); IMMATURE GRANULOCYTES 0.4 %; IMMATURE GRANULOCYTES ABSOLUTE 0.05 10/3/uL (0.0-0.11); LYMPHOCYTES 20.8 %; MEAN CORPUS HGB CONC 30.9 g/dL (32.0-36.0); MEAN CORPUSCULAR VOLUME 74.5 fL (80-100); MEAN PLATELET VOLUME 8.9 fL (9.2-13.0); MONOCYTES ABSOLUTE 0.65 10/3/uL (0.21-1.20); NEUTROPHILS 71.1 %; NEUTROPHILS ABSOLUTE 9.26 10/3/uL (2.02-8.40); PLATELET COUNT 323 10/3/uL (150-400); RBC DISTRIBUTION WIDTH 17.4 % (12.0-16.0); RED CELL COUNT 4.04 10/6/uL (4.0-5.6)
[2016-10-07 13:05] LABS: HEMATOCRIT 30.1 % (36.0-48.0); MANUAL DIFF NO %
[2016-10-07 13:20] LABS: A/G RATIO 0.6 (0.7-1.9); ALBUMIN 2.7 G/DL (3.5-5.0); ALKALINE PHOSPHATASE 87 U/L (45-117); BUN (BLOOD UREA NITROGEN) 30 MG/DL (6-23); CALCIUM, SERUM 8.5 MG/DL (8.5-10.4); CHLORIDE, SERUM 107 MMOL/L (96-112); CO2 (CARBON DIOXIDE) 27 MMOL/L (24-34); CREATININE 5.86 MG/DL (0.55-1.02); GFR AFRICAN AMERICAN 7 ML/MIN (>=60); GFR NON AFRICAN AMERICAN 6 ML/MIN (>=60); GLOBULIN 4.7 G/DL (2.5-4.1); GLUCOSE, SERUM 71 MG/DL (60-99); POTASSIUM, SERUM 4.8 MMOL/L (3.5-5.3); SGOT(AST) 8 U/L (5-40); SGPT(ALT) < 6 U/L (5-65); SODIUM, SERUM 141 MMOL/L (135-148); TOTAL BILIRUBIN 0.3 MG/DL (0-1.2); TOTAL PROTEIN 7.4 G/DL (6.0-8.5)
[2016-10-07 13:32] LABS: ANISOCYTOSIS 1+ (5-10/OIF) (0-5/OIF); HYPOCHROMIA 1+ (3-10/OIF) (0-2/OIF); MICROCYTES 1+ (5-10/OIF) (0-5/OIF); PLATELET ESTIMATE ADQ (ADEQUATE)
[2016-10-08 05:22] LABS: BASOPHILS 0.3 %; BASOPHILS ABSOLUTE 0.04 10/3/uL (0.0-0.16); EOSINOPHILS 3.1 %; EOSINOPHILS ABSOLUTE 0.38 10/3/uL (0.0-0.53); HEMATOCRIT 30.6 % (36.0-48.0); HEMOGLOBIN 9.4 g/dL (12.0-16.0); IMMATURE GRANULOCYTES 0.3 %; IMMATURE GRANULOCYTES ABSOLUTE 0.04 10/3/uL (0.0-0.11); LYMPHOCYTES 28.8 %; LYMPHOCYTES ABSOLUTE 3.52 10/3/uL (0.67-4.30); MANUAL DIFF NO %; MEAN CORPUS HGB CONC 30.7 g/dL (32.0-36.0); MEAN CORPUSCULAR VOLUME 74.8 fL (80-100); MONOCYTES 7.7 %; MONOCYTES ABSOLUTE 0.94 10/3/uL (0.21-1.20); NEUTROPHILS 59.8 %; NEUTROPHILS ABSOLUTE 7.31 10/3/uL (2.02-8.40); PLATELET COUNT 317 10/3/uL (150-400); RBC DISTRIBUTION WIDTH 17.7 % (12.0-16.0); RED CELL COUNT 4.09 10/6/uL (4.0-5.6); WHITE BLOOD CELLS 12.2 10/3/uL (4.5-10.5)
[2016-10-08 05:28] LABS: A/G RATIO 0.6 (0.7-1.9); ALBUMIN 2.7 G/DL (3.5-5.0); ALKALINE PHOSPHATASE 86 U/L (45-117); CALCIUM, SERUM 8.8 MG/DL (8.5-10.4); CHLORIDE, SERUM 108 MMOL/L (96-112); CO2 (CARBON DIOXIDE) 23 MMOL/L (24-34); GLOBULIN 4.7 G/DL (2.5-4.1); GLUCOSE, SERUM 74 MG/DL (60-99); PHOSPHORUS, SERUM 3.8 MG/DL (2.5-4.5); POTASSIUM, SERUM 4.7 MMOL/L (3.5-5.3); SGOT(AST) 7 U/L (5-40); SODIUM, SERUM 141 MMOL/L (135-148); TOTAL BILIRUBIN 0.3 MG/DL (0-1.2); TOTAL PROTEIN 7.4 G/DL (6.0-8.5)
[2016-10-08 05:33] LABS: BUN (BLOOD UREA NITROGEN) 34 MG/DL (6-23); CREATININE 6.76 MG/DL (0.55-1.02); GFR AFRICAN AMERICAN 6 ML/MIN (>=60); GFR NON AFRICAN AMERICAN 5 ML/MIN (>=60); SGPT(ALT) 6 U/L (5-65)
[2016-10-08 06:14] LABS: ANISOCYTOSIS 1+ (5-10/OIF) (0-5/OIF); HYPOCHROMIA 1+ (3-10/OIF) (0-2/OIF); MICROCYTES 1+ (5-10/OIF) (0-5/OIF); PLATELET ESTIMATE ADQ (ADEQUATE)
[2016-10-08 06:15] LABS: TARGET CELLS FEW (3-10/OIF) (0-1/OIF)
[2016-10-10] MEDS ORDERED: Z100 PO (16:08)
[2016-10-10] MEDS ORDERED: REFRESH OPH SO0.3 ML OPH (16:08)
[2016-10-10] MEDS ORDERED: ASAB PO (16:09)
[2016-10-10] MEDS ORDERED: NOVOLOG SC (16:11)
[2016-10-10] MEDS ORDERED: VOLTAREN1 % TOP (16:11)
[2016-10-10] MEDS ORDERED: CEFAZ1 IV (16:12)
[2016-10-10] MEDS ORDERED: PROTONIX PO (16:13)
[2016-10-10] MEDS ORDERED: MELA3 PO (16:16)
[2016-10-10] MEDS ORDERED: MIRALAX POWDER1 PKT PO (16:18)
[2016-10-10] MEDS ORDERED: MERREM500 MG IV (16:18)
[2016-10-10] MEDS ORDERED: SENTAB PO (16:19)
[2016-10-10] MEDS ORDERED: ZOL100 PO (16:20)
[2016-10-10] MEDS ORDERED: SEVE800T PO (16:20)
[2016-10-10] MEDS ORDERED: IMDUR30 PO (16:21)
[2016-10-10] MEDS ORDERED: NEUR100 PO (16:21)
[2016-10-10] MEDS ORDERED: CARD120 PO (16:22)
[2016-10-10] MEDS ORDERED: XALAT OPH (16:22)
[2016-10-10] MEDS ORDERED: ARICEPT5 PO (16:23)
[2016-10-10] MEDS ORDERED: FERROUS SULF325 M1 PO (16:23)
[2016-10-10] MEDS ORDERED: DEMA100 PO (16:24)
[2016-10-10] MEDS ORDERED: T PO (16:25)
[2016-10-10] MEDS ORDERED: CATAPRES2 TOP (16:25)
[2016-10-10] MEDS ORDERED: ACETSUP325 PR (16:26)
[2016-10-10] MEDS ORDERED: GUAIFEN DM PO (16:27)
[2016-10-10] MEDS ORDERED: ZOFRAN4 PO (16:28)
[2016-10-10] MEDS ORDERED: ATV.5 PO (16:29)
[2016-10-10] MEDS ORDERED: NITROQUICK0.4 MG SL (16:30)
[2016-10-10] MEDS ORDERED: ATIVAN 2 MG/ML PO (16:30)
== END 2016-10-08 17:37 | DRG 477 ==
LOC: ER 16:39 → 4EA 19:06
PROVIDERS: Emergency Medicine; Family Medicine; Internal Medicine Infectious Disease; Internal Medicine Nephrology; Nurse Practitioner
PROC: 5A1D60Z (ICD-10-PCS; 2016-10-01)
PROC: 0QB03ZX Excision of Lumbar Vertebra, Percutaneous Approach, Diagnostic (ICD-10-PCS; principal; 2016-10-02)
PROC: 02HV33Z Insertion of Infusion Device into Superior Vena Cava, Percutaneous Approach (ICD-10-PCS; 2016-10-02)
PROC: 4A02X4A Measurement of Cardiac Electrical Activity, Guidance, External Approach (ICD-10-PCS; 2016-10-02)
DX: M46.26 Osteomyelitis of vertebra, lumbar region (principal); N18.6 End stage renal disease; I12.0 Hypertensive chronic kidney disease with stage 5 chronic kidney disease or end stage renal disease; E11.22 Type 2 diabetes mellitus with diabetic chronic kidney disease; N39.0 Urinary tract infection, site not specified; G62.9 Polyneuropathy, unspecified; Z66 Do not resuscitate; R76.11 Nonspecific reaction to tuberculin skin test without active tuberculosis; Z99.2 Dependence on renal dialysis
CPT/HCPCS: 20220; 36569; 36597; 70450; 71010; 72148; 73721-LT; 77001; 77012; 80048; 80053; 80069; 81001; 82140; 82962; 83605; 84145; 85025; 85610; 85652; 85730; 86140; 87015; 87040; 87070; 87075; 87077; 87086; 87102; 87116; 87186; 87205; 88307; 88311; 93005; 97162-GP; 99285; A9270-GY; C1751; C1769; C9113; G0257; J0690; J0692; J0885; J1170; J2185; J2250; J2405; J3010; J3370; P9047

== ENCOUNTER 2016-10-11 06:41 | Day surgery (SDC) | payer MEDICARE ==
--- NOTE | ~2016-10-11 | OP ---
Record Of Operation [facility] [address] [place]. [address] NAME: BLAYNE NICOLAS : 36 STATUS : REG [facility]#: [id number] AGE: 80 ADM/REG DATE : 10/11/16 MR#: [id number] REPORT SERV DATE: 10/11/16 DICTATED BY: DANN DE LOS SANTOS JR. DATE: 10/11/16 REPORT STATUS : Draft TRANSCRIBED BY: JERRY DATE: 10/11/16 DATE OF PROCEDURE: 10/11/2016 PROCEDURE PERFORMED: Right PermCath catheter (internal jugular vein). PREOPERATIVE DIAGNOSIS: Malfunctioning right PermCath catheter. POSTOPERATIVE DIAGNOSIS: Malfunctioning right PermCath catheter. PREOPERATIVE HISTORY: This is a 80-year-old black female who has been dialyzing according to the patient for one year. At dialysis yesterday, she was noted to have a crack in the plastic line on her PermCath catheter. It was clamped with a hemostat. She was sent to the hospital today for replacement. DESCRIPTION OF PROCEDURE: The patient was placed on the operating table. The right side of the neck prepped and draped in a sterile manner as possible. A small incision was made close to where the catheter went into the internal jugular vein. The catheter was then encircled with a vessel loop. It was then cut completely in two. The distal aspect of the catheter was then pulled away. A wire was then put down through the proximal port of the catheter. This was then pulled out. A new PermCath catheter brought through a stab wound below the right clavicle, up into the neck incision, and down into a tearaway introducer. The fluoro machine was used to confirm good position without kinking. The catheter was irrigated with heparinized saline. The caps were sutured into place with 2-0 nylon. The patient tolerated the procedure well. She was taken back to recovery room in fair condition. There were no intraoperative complications. Estimated blood loss was negligible. DF/JERRY Dann De Los Santos Jr., M.D. / [id number] CC: Aron Renner Jr., M.D.
[~2016-10-11 06:41] MED LIST changes: +ACETSUP325 PR; +ATIVAN 2 MG/ML PO; +CATAPRES2 TOP; +CEFAZ1 IV; +FERROUS SULF325 M1 PO; +GUAIFEN DM PO; +MERREM500 MG IV; +MIRALAX POWDER1 PKT PO; +NITROQUICK0.4 MG SL; +SENTAB PO; +SEVE800T PO; +ZOL100 PO
[2016-10-11 07:51] LABS: HEMOGLOBIN 8.4 g/dL (12.0-16.0)
[2016-10-11 07:58] LABS: BUN (BLOOD UREA NITROGEN) 51 MG/DL (6-23); CALCIUM, SERUM 8.2 MG/DL (8.5-10.4); CHLORIDE, SERUM 102 MMOL/L (96-112); CO2 (CARBON DIOXIDE) 24 MMOL/L (24-34); GFR AFRICAN AMERICAN 5 ML/MIN (>=60); GFR NON AFRICAN AMERICAN 4 ML/MIN (>=60); GLUCOSE, SERUM 128 MG/DL (60-99); HEMATOCRIT 26.4 % (36.0-48.0); POTASSIUM, SERUM 4.7 MMOL/L (3.5-5.3); SODIUM, SERUM 138 MMOL/L (135-148)
== END 2016-10-11 11:31 | disposition home or self-care (01) ==
LOC: SDC 06:41
PROVIDERS: Surgery
PROC: 05HM33Z Insertion of Infusion Device into Right Internal Jugular Vein, Percutaneous Approach (ICD-10-PCS; principal; 2016-10-11 09:15)
DX: T85.618A Breakdown (mechanical) of other specified internal prosthetic devices, implants and grafts, initial encounter (principal); I12.0 Hypertensive chronic kidney disease with stage 5 chronic kidney disease or end stage renal disease; E11.22 Type 2 diabetes mellitus with diabetic chronic kidney disease; N18.6 End stage renal disease; G47.33 Obstructive sleep apnea (adult) (pediatric); Z90.710 Acquired absence of both cervix and uterus; Z98.890 Other specified postprocedural states; Z88.8 Allergy status to other drugs, medicaments and biological substances
CPT/HCPCS: 36581; 71010; 77001; 80048; 82962; 85014; 85018; C1750; C1769

== ENCOUNTER 2016-10-23 06:45 | Inpatient (IN) | payer MEDICARE ==
--- NOTE | ~2016-10-23 | HP ---
History And Physical [place] [id number] [facility] [place]. [address] NAME: BLAYNE NICOLAS : 36 STATUS : ADM IN [facility]#: [id number] AGE: 80 ADM/REG DATE : 10/23/16 MR#: [id number] REPORT SERV DATE: 10/23/16 DICTATED BY: ANTONIETA MARTI DATE: 10/23/16 REPORT STATUS : Draft TRANSCRIBED BY: MODL DATE: 10/23/16 DATE OF ADMISSION: 10/23/2016 HISTORY OF PRESENT ILLNESS: This is a 80-year-old black female, a patient of ours at [facility]. She was diagnosed with osteomyelitis of the lumbar spine on 10/02/2016, the organisms were E coli, extended-spectrum beta-lactamase, and methicillin sensitive Staph aureus. She had a needle biopsy of the lumbar spine and the samples grew this. She had negative blood cultures then. A PICC line was placed in her right arm, and she was put on meropenem 500 mg daily and Ancef 2 g after each dialysis. She was transferred to [facility] to the dialysis unit, where she had received this antibiotic for two weeks. She has had very little pain of the lower back during that time, but she admits she has not been moving much. In the last couple of days, she has developed constipation, but she cannot remember exactly when the last bowel movement was, but yesterday, she was given medication to help relieve this. She vomited several times through the day and in the evening and then had a very loose bowel movement last night. Her vomiting is better. The report from [facility] had sent her last documented temperature of 100 or more, was on 10/18/2016, and it was 100.4, axillary. On evaluation of her vomiting in the emergency room, a CT was done of the abdomen, and it was noted that the osteomyelitis in the lower lumbar spine had worsened over the few weeks that she had been on IV antibiotics. She is admitted to further address this issue. PAST MEDICAL HISTORY: Complicated in that she has end-stage renal disease, on hemodialysis. She also has hypertension, diabetes, coronary artery disease, congestive heart failure with normal ejection fraction, obstructive sleep apnea, glaucoma, she is blind in her left eye. She has gout. She had latent TB which was treated fully in the summer of 2015. FAMILY HISTORY: Positive for renal failure, diabetes, hypertension, and coronary artery disease. SOCIAL HISTORY: She is a former smoker. She is a for less than a year. She lives at home with her daughter, Hortencia. PREVIOUS SURGERY: Included hysterectomy, appendectomy at age 38, left knee replacement in 2008, a right knee replacement in 2007, a cholecystectomy in 2006. She had a thyroid nodule biopsy or removal in 1991 and she had a thyroid goiter surgery in 1973. She had bilateral carpal tunnel surgery in 1988, bilateral trigger finger repair, a colon mass that was resected with a partial colectomy in 11/2014 for benign reasons. She had a left AV fistula placed in August 2015 with three revisions. She had a Perma-Cath in her right chest placed in 08/2015. She has also had cataract surgery. REVIEW OF SYSTEMS: Besides that mentioned above, she denies having had any fever, but as mentioned above, she has had one of 100.4 on five days ago and that was axillary. She has had sinus congestion with a cough for the last two weeks as she has been in [facility]. She has had very little pain. She has only been out of the bed once in the last two weeks, and she said she had very little pain even then. She has had vomiting within the last 24 hours, History And Physical [address] [place]. [address] NAME: BLAYNE NICOLAS : 37 STATUS : ADM IN [facility]#: [id number] AGE: 80 ADM/REG DATE : 10/23/16 MR#: [id number] REPORT SERV DATE: 10/23/16 DICTATED BY: ANTONIETA MARTI DATE: 10/23/16 REPORT STATUS : Draft TRANSCRIBED BY: MODJason DATE: 10/23/16 but that is now resolved, and she has had constipation for several days. She has had decreased appetite. PHYSICAL EXAMINATION: VITAL SIGNS: Weight is 192 pounds, height is 5 feet 6 inches, presently her last blood pressure was 183/79, respiratory rate 16, heart rate 76, temperature 98.4, O2 saturation is 100% on room air. GENERAL: She is alert. She has left upper extremity weakness and pain with touch particularly in the hand and wrist. She is cooperative, and in no acute distress presently. Her skin is normal turgor. NECK: Supple. There is no adenopathy. LUNGS: Clear. HEART: Regular rate and rhythm. ABDOMEN: Soft. There are hypoactive bowel sounds. Right in her buttocks reveals two shallow pressure injuries and tenderness to the touch. There is no sign of any warmth or redness in the whole lumbar spine area. SKIN: Without rashes. She has 1+ edema bilaterally. She has tenderness of the left heel with some swelling on the medial aspect of it and some thickening of the skin of the left heel. She has a weak dorsalis pedis pulses bilaterally. LABORATORY: In the emergency room, her white count was 13,600, 78% neutrophils, her H and H are 10 and 31, her platelet count is 347,000. Her electrolytes, sodium is 135, her potassium 4.4, chloride 96, CO2 of 26, BUN 23, creatinine 4.64, glucose 154, and calcium 8.3. Albumin 2.9. In the emergency room, her urinalysis had large amount of leukocytes and blood. Chest x-ray revealed a PICC line and a Vas cath line, but no infiltrates. CT of the abdomen did not show any obstruction or inflammation of the GI tract but showed some destruction more or so this time than on the scans a few weeks ago particularly in the area of L4-L5 with some gas seen also on the disk area. There is a left kidney lesion that appears to be cystic. This is unchanged from previous films. ASSESSMENT AND PLAN: 1. Constipation that apparently has resulted in vomiting and then post impaction diarrhea versus acute gastroenteritis. We will give her Zofran p.r.n. and daily senna to help avoid recurrence of this. 2. Osteomyelitis of the lumbar spine, which is worsening on IV antibiotics. We will go ahead and re-culture her blood in urine and consult Infectious Disease and Ortho-spine to see what they can offer in helping this unfortunate lady. 3. End-stage renal disease, on hemodialysis. She is due for dialysis again tomorrow. Dr. Gutierrez has been consulted and has seen her. 4. Deconditioning and debility with all these multiple problems. It is difficult to get a handle on this, but we will ask PT to help. 5. Moderate dementia with history of delirium on hospitalizations. We will avoid opiates IV if possible. Give her gentle hydrocodone as needed. Avoid Dilaudid completely as she reacted badly to this last time. 6. Anxiety. We will continue her sertraline and p.r.n. lorazepam. 7. Diabetes, under good control. 8. She has multiple allergies, which is a bigger problem considering her need for History And Physical [address] [address] NAME: BLAYNE NICOLAS : 36 STATUS : ADM IN [facility]#: [id number] AGE: 80 ADM/REG DATE : 10/23/16 MR#: [id number] REPORT SERV DATE: 10/23/16 DICTATED BY: ANTONIETA MARTI DATE: 10/23/16 REPORT STATUS : Draft TRANSCRIBED BY: JERRY DATE: 10/23/16 treatment of this infection. They have included penicillins for which she got welts, sulfur for which she had shortness breath and welts, levofloxacin the reaction that stated is that she had kidney problems as a result of the levofloxacin. She had hydromorphone and she had prolonged delirium with that. She has had erythromycin that causes nausea and vomiting. She had beta-blockers and hydralazine for which she had an unknown type of reaction. She had iodinated contrast media and oral iodine and got short of breath and welts with those. She had beta-blockers that caused an unknown reaction. She has had nausea and vomiting with any fish containing products. She has had codeine caused tremors, but she can take hydrocodone. Also she can take Cipro even though she says she is allergic to the levofloxacin. She has had nausea and vomiting with both lansoprazole and dexlansoprazole, and had shortness of breath with the dexlansoprazole. MARIAELENA/JERRY Antonieta Marti M.D. / [id number] CC: Antonieta Marti M.D.
--- NOTE | ~2016-10-23 | DS ---
Discharge Summary [facility] [address] [place]. [address] NAME: BLAYNE NICOLAS : 37 STATUS : DIS IN PAT#: [id number] AGE: 80 ADM/REG DATE : 10/23/16 MR#: [id number] REPORT SERV DATE: 11/08/16 DICTATED BY: ANTONIETA MARTI DATE: 11/07/16 REPORT STATUS : Draft TRANSCRIBED BY: JERRY DATE: 11/07/16 Data Collection from hospitalization DISCHARGE DIAGNOSES: 1. Nausea, constipation, and diarrhea. 2. Lumbar osteomyelitis. 3. End-stage renal disease. 4. Hypertension. 5. Diabetes. 6. Coronary artery disease. 7. Congestive heart failure. 8. Obstructive sleep apnea. 9. Glaucoma. 10.Blindness in the left eye. 11.Gout. 12.History of latent tuberculosis. 13.Former smoker. CONSULTATIONS: None. PROCEDURES PERFORMED: CT scan of the abdomen and pelvis without contrast, 10/23/2016. DISCHARGE MEDICATIONS: Zyloprim 100 mg daily, Refresh ophthalmic solution two drops three times a day, aspirin 81 mg daily, Voltaren one application topically twice a day, Ancef 2 g IV every 48 hours for 42 days, Cardizem CD 180 mg daily, Aricept 5 mg at 5 p.m. as instructed, ferrous sulfate 325 mg daily, Neurontin 100 mg twice a day, NovoLog injection insulin as instructed, Imdur 90 mg daily, Xalatan one drop at bedtime in both eyes, melatonin 6 mg at bedtime, Theragran-M one tablet daily, Protonix 40 mg as instructed, MiraLAX one packet daily, Senokot two tablets at bedtime-hold for loose stools, Zoloft 100 mg daily, Renvela 800 mg at 7:30 a.m. and 11:30 a.m. and 5 p.m., Demadex 100 mg every 48 hours, Catapres-TTS 0.2 mg topically on Wednesdays and 0.1 mg as needed and as instructed, Tylenol two tablets every four hours as needed orally or rectally, Guaifen DM 5-10 mL every six hours as needed, Zofran 4 mg every four hours as needed, Ativan 0.5 mg every eight hours as needed, NitroQuick 0.4 mg sublingually as needed, Merrem 500 mg IV at 3 p.m. for 42 days, Oceana 7.5/325 one tablet every six hours as needed, Amitiza 24 mcg twice a day as instructed. CONDITION AT DISCHARGE: Stable. DISPOSITION: The patient was discharged to [facility] on a renal diet with activities as instructed. HOSPITAL COURSE: This is a 80-year-old female, who is a patient of our at [facility]. She had been diagnosed with osteomyelitis of the lumbar spine on 10/02/2016. She had a needle biopsy of the lumbar spine and samples screws this. She had negative blood cultures at that time. A PICC line was placed in the right arm and she was placed on meropenem and Ancef after each dialysis. She was transferred to [facility] to the dialysis unit, where she had received this antibiotic for two weeks. She has Discharge Summary [facility] [address] [place]. [address] NAME: BLAYNE NICOLAS : 37 STATUS : DIS IN PAT#: [id number] AGE: 80 ADM/REG DATE : 10/23/16 MR#: [id number] REPORT SERV DATE: 11/08/16 DICTATED BY: ANTONIETA MARTI DATE: 11/07/16 REPORT STATUS : Draft TRANSCRIBED BY: JERRY DATE: 11/07/16 had very little pain in the lower back during that time, but she did admit she had not been moving much. Over the past couple of days, she developed constipation, but could not remember exactly when her last bowel movement was. On the day prior to admission, she was given medication to help this and she had a very loose bowel movements the night prior to admission. Her temperature had increased to 100 or more. On 10/18/2016, it was 100.4 axillary. In the emergency room, a CT scan of the abdomen and pelvis without contrast revealed osteomyelitis of the lower lumbar spine, which has worsened over the past few weeks, even though she had been on IV antibiotics. She was admitted to the hospital for further evaluation and treatment. Upon admission, her white blood cell count was 13,600, creatinine level was 4.64. Urinalysis revealed a large amount of leukocytes and blood. Zofran was going to be given as needed and daily senna. We were going to re-culture her blood and urine. We would avoid Dilaudid completely as she had a bad reaction to this previously. We would avoid opiates IV if possible. We would give gentle hydrocodone as needed. She was seen in consultation by Dr. Syed Gutierrez. She was on hemodialysis for her end-stage renal disease. Dialysis would be performed the following day. She was also seen by Dr. See Nunez. 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 She had been unable to ambulate secondary to the pain. He felt that she would likely need surgery secondary to bony destruction. The patient was going to consider this. The following day, her pain was controlled. She did complain of bilateral knee pain. She had no complaints of back pain at this time, but she was not moving in bed. She had hypoactive bowel sounds. Cardizem was increased. Clonidine was being given as needed. MiraLAX was added for constipation. She was not eating well. She was seen by Dr. Jose Thompson. He recommended that Ancef and meropenem be continued. Blood cultures were negative thus far. White count was 13.6. She still complained of some nausea. She was evaluated by Physical Therapy. Dialysis therapy was provided. On 10/25/2016, she was alert and cooperative. She had good pain control. She had no edema. Antibiotics were continued. The patient and her family did not wish to pursue spine surgery. She said she had been sleeping well. She had no further complaints of nausea. Her blood cultures remained negative. On 10/26/2016, the patient said she was feeling better. Her lungs were clear. Blood cultures remained negative. The patient and her family were aware that the IV antibiotics were not working. They had declined surgery and understood the risks and possibility of progression. Dr. Thompson had explained that we could complete six weeks of antibiotics, but it did not appear to be helping. It was felt that the patient may need hospice. The patient and her family understood this and did not wish to pursue surgery. Her blood pressure was under fair control. The next day, she was evaluated by Physical Therapy. She was afebrile. She had no complaints of pain. Discharge planning was performed. IV Merrem and Ancef were continued. Blood and urine cultures were negative. MiraLAX and senna were increased. A Dulcolax suppository was given. Hemodialysis therapy continued. On 10/28/2016, she states she did not feel well. She had multiple bowel movements throughout the night. She had received laxatives. The nurse stated her stools were semi-formed. White count was 15.3. It was felt that her elevated white blood cell count was probably secondary to the spine infection. Discharge instructions were given. Due to her improved and stable condition, she was discharged to [facility] with the above-stated instructions. Discharge Summary [address] [address] NAME: BLAYNE NICOLAS : 37 STATUS : DIS IN PAT#: [id number] AGE: 80 ADM/REG DATE : 10/23/16 MR#: [id number] REPORT SERV DATE: 11/08/16 DICTATED BY: ANTONIETA MARTI DATE: 11/07/16 REPORT STATUS : Draft TRANSCRIBED BY: JERRY DATE: 11/07/16 Information collected by: Magda Hughes I submit the above information as my discharge summary. DALTON/JERRY Antonieta Marti M.D. / [id number] CC: Aron Robbins, DO Syed Gutierrez M.D. [facility] Jose Thompson M.D.
[2016-10-23 06:40] LABS: BASOPHILS 0.1 %; BASOPHILS ABSOLUTE 0.02 10/3/uL (0.0-0.16); EOSINOPHILS 0 %; IMMATURE GRANULOCYTES 0.7 %; LYMPHOCYTES 16.6 %; LYMPHOCYTES ABSOLUTE 2.26 10/3/uL (0.67-4.30); MEAN CORPUSCULAR HEMOGLOB 23.5 pg (26.0-34.0); MEAN CORPUSCULAR VOLUME 72.9 fL (80-100); MEAN PLATELET VOLUME 9.2 fL (9.2-13.0); MONOCYTES 4.3 %; MONOCYTES ABSOLUTE 0.59 10/3/uL (0.21-1.20); NEUTROPHILS 78.3 %; NEUTROPHILS ABSOLUTE 10.63 10/3/uL (2.02-8.40); PLATELET COUNT 347 10/3/uL (150-400); RBC DISTRIBUTION WIDTH 16.9 % (12.0-16.0); RED CELL COUNT 4.25 10/6/uL (4.0-5.6); WHITE BLOOD CELLS 13.6 10/3/uL (4.5-10.5)
[2016-10-23 06:41] LABS: MANUAL DIFF NO %; MEAN CORPUS HGB CONC 32.3 g/dL (32.0-36.0)
[2016-10-23 06:58] LABS: A/G RATIO 0.5 (0.7-1.9); ALBUMIN 2.9 G/DL (3.5-5.0); ALKALINE PHOSPHATASE 89 U/L (45-117); BUN (BLOOD UREA NITROGEN) 23 MG/DL (6-23); CALCIUM, SERUM 8.3 MG/DL (8.5-10.4); CHLORIDE, SERUM 96 MMOL/L (96-112); CO2 (CARBON DIOXIDE) 26 MMOL/L (24-34); CREATININE 4.64 MG/DL (0.55-1.02); GFR AFRICAN AMERICAN 10 ML/MIN (>=60); GFR NON AFRICAN AMERICAN 8 ML/MIN (>=60); GLOBULIN 5.4 G/DL (2.5-4.1); GLUCOSE, SERUM 154 MG/DL (60-99); POTASSIUM, SERUM 4.4 MMOL/L (3.5-5.3); SGOT(AST) 12 U/L (5-40); SGPT(ALT) < 6 U/L (5-65); SODIUM, SERUM 135 MMOL/L (135-148); TOTAL BILIRUBIN 0.6 MG/DL (0-1.2); TOTAL PROTEIN 8.3 G/DL (6.0-8.5)
[2016-10-23] MEDS ORDERED: VOLTAREN1 % TOP (08:16)
[2016-10-23] MEDS ORDERED: CEFAZ1 IV (08:22)
[2016-10-23] MEDS ORDERED: MERREM500 MG IV (08:22)
[2016-10-23] MEDS ORDERED: THERGRANM PO (08:23)
[2016-10-23 08:29] LABS: ASCORBIC ACID (UR NOT ORDER) NEG (NEG); BILIRUBIN, URINE NEGATIVE (NEG); ER URINALYSIS TAT 0 Hrs 38 Mins; KETONE, URINE NEGATIVE (NEG); LEUKOCYTE ESTERASE(NOT OR LARGE (NEG); NITRITE (URINE) NEG (NEG); WBC (NOT ORDERED) (RFLEX) > 182 (0-5)
[2016-10-23] MEDS ORDERED: CAT1 PO (08:32)
[2016-10-23] MEDS ORDERED: NORCO1 TA2 PO (08:34)
[2016-10-24 12:58] LABS: BASOPHILS 0.3 %; BASOPHILS ABSOLUTE 0.03 10/3/uL (0.0-0.16); EOSINOPHILS 2.2 %; EOSINOPHILS ABSOLUTE 0.26 10/3/uL (0.0-0.53); HEMOGLOBIN 8.8 g/dL (12.0-16.0); IMMATURE GRANULOCYTES 0.3 %; IMMATURE GRANULOCYTES ABSOLUTE 0.04 10/3/uL (0.0-0.11); LYMPHOCYTES 24.2 %; LYMPHOCYTES ABSOLUTE 2.82 10/3/uL (0.67-4.30); MEAN CORPUS HGB CONC 32.2 g/dL (32.0-36.0); MEAN CORPUSCULAR HEMOGLOB 23.5 pg (26.0-34.0); MEAN CORPUSCULAR VOLUME 72.8 fL (80-100); MEAN PLATELET VOLUME 8.8 fL (9.2-13.0); MONOCYTES 7.6 %; MONOCYTES ABSOLUTE 0.88 10/3/uL (0.21-1.20); NEUTROPHILS 65.4 %; NEUTROPHILS ABSOLUTE 7.61 10/3/uL (2.02-8.40); PLATELET COUNT 356 10/3/uL (150-400); RBC DISTRIBUTION WIDTH 16.7 % (12.0-16.0); RED CELL COUNT 3.75 10/6/uL (4.0-5.6); WHITE BLOOD CELLS 11.6 10/3/uL (4.5-10.5)
[2016-10-24 12:59] LABS: HEMATOCRIT 27.3 % (36.0-48.0)
[2016-10-24 13:00] LABS: MANUAL DIFF NO %
[2016-10-24 13:11] LABS: ALBUMIN 2.7 G/DL (3.5-5.0); BUN (BLOOD UREA NITROGEN) 34 MG/DL (6-23); CALCIUM, SERUM 7.5 MG/DL (8.5-10.4); CHLORIDE, SERUM 94 MMOL/L (96-112); CO2 (CARBON DIOXIDE) 29 MMOL/L (24-34); CREATININE 6.83 MG/DL (0.55-1.02); GFR AFRICAN AMERICAN 6 ML/MIN (>=60); GFR NON AFRICAN AMERICAN 5 ML/MIN (>=60); GLUCOSE, SERUM 141 MG/DL (60-99); PHOSPHORUS, SERUM 4.4 MG/DL (2.5-4.5); POTASSIUM, SERUM 3.4 MMOL/L (3.5-5.3); SODIUM, SERUM 136 MMOL/L (135-148)
[2016-10-25 07:46] LABS: BASOPHILS 0.3 %; BASOPHILS ABSOLUTE 0.04 10/3/uL (0.0-0.16); EOSINOPHILS 3.2 %; EOSINOPHILS ABSOLUTE 0.37 10/3/uL (0.0-0.53); HEMOGLOBIN 9.5 g/dL (12.0-16.0); IMMATURE GRANULOCYTES 0.4 %; IMMATURE GRANULOCYTES ABSOLUTE 0.05 10/3/uL (0.0-0.11); LYMPHOCYTES 27.4 %; LYMPHOCYTES ABSOLUTE 3.21 10/3/uL (0.67-4.30); MEAN CORPUS HGB CONC 31.3 g/dL (32.0-36.0); MEAN CORPUSCULAR HEMOGLOB 23.2 pg (26.0-34.0); MEAN CORPUSCULAR VOLUME 74.3 fL (80-100); MEAN PLATELET VOLUME 9.1 fL (9.2-13.0); MONOCYTES 7.4 %; MONOCYTES ABSOLUTE 0.87 10/3/uL (0.21-1.20); NEUTROPHILS 61.3 %; NEUTROPHILS ABSOLUTE 7.18 10/3/uL (2.02-8.40); PLATELET COUNT 363 10/3/uL (150-400); RBC DISTRIBUTION WIDTH 16.9 % (12.0-16.0); RED CELL COUNT 4.09 10/6/uL (4.0-5.6); WHITE BLOOD CELLS 11.7 10/3/uL (4.5-10.5)
[2016-10-25 07:55] LABS: HEMATOCRIT 30.4 % (36.0-48.0); MANUAL DIFF NO %
[2016-10-25 07:57] LABS: ALBUMIN 2.7 G/DL (3.5-5.0); CALCIUM, SERUM 8.3 MG/DL (8.5-10.4); CHLORIDE, SERUM 100 MMOL/L (96-112); CO2 (CARBON DIOXIDE) 27 MMOL/L (24-34); POTASSIUM, SERUM 3.6 MMOL/L (3.5-5.3); SODIUM, SERUM 137 MMOL/L (135-148)
[2016-10-25 07:58] LABS: BUN (BLOOD UREA NITROGEN) 18 MG/DL (6-23); GFR AFRICAN AMERICAN 9 ML/MIN (>=60); GFR NON AFRICAN AMERICAN 8 ML/MIN (>=60); GLUCOSE, SERUM 90 MG/DL (60-99)
[2016-10-26 08:16] LABS: BASOPHILS 0.2 %; BASOPHILS ABSOLUTE 0.03 10/3/uL (0.0-0.16); EOSINOPHILS 4.2 %; EOSINOPHILS ABSOLUTE 0.52 10/3/uL (0.0-0.53); HEMATOCRIT 28.9 % (36.0-48.0); HEMOGLOBIN 9.2 g/dL (12.0-16.0); IMMATURE GRANULOCYTES 0.3 %; IMMATURE GRANULOCYTES ABSOLUTE 0.04 10/3/uL (0.0-0.11); LYMPHOCYTES 28.8 %; LYMPHOCYTES ABSOLUTE 3.56 10/3/uL (0.67-4.30); MEAN CORPUS HGB CONC 31.8 g/dL (32.0-36.0); MEAN CORPUSCULAR HEMOGLOB 23.5 pg (26.0-34.0); MEAN CORPUSCULAR VOLUME 73.7 fL (80-100); MONOCYTES 7.9 %; MONOCYTES ABSOLUTE 0.97 10/3/uL (0.21-1.20); NEUTROPHILS 58.6 %; NEUTROPHILS ABSOLUTE 7.23 10/3/uL (2.02-8.40); PLATELET COUNT 346 10/3/uL (150-400); RBC DISTRIBUTION WIDTH 16.9 % (12.0-16.0); RED CELL COUNT 3.92 10/6/uL (4.0-5.6); WHITE BLOOD CELLS 12.4 10/3/uL (4.5-10.5)
[2016-10-26 08:17] LABS: MANUAL DIFF NO %
[2016-10-26 08:28] LABS: ALBUMIN 2.5 G/DL (3.5-5.0); CALCIUM, SERUM 7.8 MG/DL (8.5-10.4); CHLORIDE, SERUM 100 MMOL/L (96-112); CO2 (CARBON DIOXIDE) 26 MMOL/L (24-34); GFR AFRICAN AMERICAN 6 ML/MIN (>=60); GFR NON AFRICAN AMERICAN 5 ML/MIN (>=60); GLUCOSE, SERUM 92 MG/DL (60-99); PHOSPHORUS, SERUM 3.4 MG/DL (2.5-4.5); POTASSIUM, SERUM 4.1 MMOL/L (3.5-5.3); SODIUM, SERUM 139 MMOL/L (135-148)
[2016-10-26 08:29] LABS: BUN (BLOOD UREA NITROGEN) 31 MG/DL (6-23)
[2016-10-27 08:19] LABS: BASOPHILS 0.1 %; BASOPHILS ABSOLUTE 0.02 10/3/uL (0.0-0.16); EOSINOPHILS 4.6 %; EOSINOPHILS ABSOLUTE 0.62 10/3/uL (0.0-0.53); HEMATOCRIT 27.2 % (36.0-48.0); HEMOGLOBIN 8.7 g/dL (12.0-16.0); IMMATURE GRANULOCYTES 0.3 %; IMMATURE GRANULOCYTES ABSOLUTE 0.04 10/3/uL (0.0-0.11); LYMPHOCYTES 26.7 %; MANUAL DIFF NO %; MEAN CORPUSCULAR HEMOGLOB 23.2 pg (26.0-34.0); MEAN CORPUSCULAR VOLUME 72.5 fL (80-100); MEAN PLATELET VOLUME 8.8 fL (9.2-13.0); MONOCYTES 6.7 %; NEUTROPHILS 61.6 %; PLATELET COUNT 345 10/3/uL (150-400); RBC DISTRIBUTION WIDTH 16.7 % (12.0-16.0); RED CELL COUNT 3.75 10/6/uL (4.0-5.6); WHITE BLOOD CELLS 13.5 10/3/uL (4.5-10.5)
[2016-10-27 08:29] LABS: ALBUMIN 2.6 G/DL (3.5-5.0); BUN (BLOOD UREA NITROGEN) 45 MG/DL (6-23); CALCIUM, SERUM 8.2 MG/DL (8.5-10.4); CHLORIDE, SERUM 101 MMOL/L (96-112); CO2 (CARBON DIOXIDE) 27 MMOL/L (24-34); CREATININE 7.88 MG/DL (0.55-1.02); GFR AFRICAN AMERICAN 5 ML/MIN (>=60); GFR NON AFRICAN AMERICAN 4 ML/MIN (>=60); GLUCOSE, SERUM 91 MG/DL (60-99); PHOSPHORUS, SERUM 3.7 MG/DL (2.5-4.5); POTASSIUM, SERUM 4.2 MMOL/L (3.5-5.3); SODIUM, SERUM 138 MMOL/L (135-148)
[2016-10-28 06:36] LABS: BASOPHILS 0.2 %; BASOPHILS ABSOLUTE 0.03 10/3/uL (0.0-0.16); EOSINOPHILS 0 %; HEMOGLOBIN 9.9 g/dL (12.0-16.0); IMMATURE GRANULOCYTES 0.3 %; IMMATURE GRANULOCYTES ABSOLUTE 0.04 10/3/uL (0.0-0.11); LYMPHOCYTES 14.2 %; LYMPHOCYTES ABSOLUTE 2.17 10/3/uL (0.67-4.30); MEAN CORPUS HGB CONC 31.8 g/dL (32.0-36.0); MEAN CORPUSCULAR HEMOGLOB 23.2 pg (26.0-34.0); MEAN CORPUSCULAR VOLUME 72.8 fL (80-100); MEAN PLATELET VOLUME 9.3 fL (9.2-13.0); MONOCYTES 3.3 %; MONOCYTES ABSOLUTE 0.51 10/3/uL (0.21-1.20); NEUTROPHILS ABSOLUTE 12.51 10/3/uL (2.02-8.40); PLATELET COUNT 372 10/3/uL (150-400); RBC DISTRIBUTION WIDTH 16.9 % (12.0-16.0); RED CELL COUNT 4.27 10/6/uL (4.0-5.6); WHITE BLOOD CELLS 15.3 10/3/uL (4.5-10.5)
[2016-10-28 06:38] LABS: HEMATOCRIT 31.1 % (36.0-48.0); MANUAL DIFF NO %
[2016-10-28 06:42] LABS: ALBUMIN 3.3 G/DL (3.5-5.0); BUN (BLOOD UREA NITROGEN) 34 MG/DL (6-23); CALCIUM, SERUM 8.5 MG/DL (8.5-10.4); CHLORIDE, SERUM 101 MMOL/L (96-112); CO2 (CARBON DIOXIDE) 27 MMOL/L (24-34); CREATININE 5.52 MG/DL (0.55-1.02); GFR AFRICAN AMERICAN 8 ML/MIN (>=60); GFR NON AFRICAN AMERICAN 7 ML/MIN (>=60); GLUCOSE, SERUM 177 MG/DL (60-99); PHOSPHORUS, SERUM 4.1 MG/DL (2.5-4.5); POTASSIUM, SERUM 4.1 MMOL/L (3.5-5.3); SODIUM, SERUM 140 MMOL/L (135-148)
== END 2016-10-28 15:08 | DRG 539 ==
LOC: ER 06:45 → ER/OF 10:26 → 5SO 11:59
PROVIDERS: Emergency Medicine; Internal Medicine Nephrology; Registered Nurse
PROC: 5A1D60Z (ICD-10-PCS; principal; 2016-10-24)
DX: M46.26 Osteomyelitis of vertebra, lumbar region (principal); N18.6 End stage renal disease; I13.2 Hypertensive heart and chronic kidney disease with heart failure and with stage 5 chronic kidney disease, or end stage renal disease; L89.152 Pressure ulcer of sacral region, stage 2; E11.22 Type 2 diabetes mellitus with diabetic chronic kidney disease; F03.90 Unspecified dementia, unspecified severity, without behavioral disturbance, psychotic disturbance, mood disturbance, and anxiety; F05 Delirium due to known physiological condition; N39.0 Urinary tract infection, site not specified; Z87.891 Personal history of nicotine dependence; B96.20 Unspecified Escherichia coli [E. coli] as the cause of diseases classified elsewhere; Z99.2 Dependence on renal dialysis; I25.10 Atherosclerotic heart disease of native coronary artery without angina pectoris; H54.42 Blindness, left eye, normal vision right eye; M10.9 Gout, unspecified; Z86.11 Personal history of tuberculosis; Z83.3 Family history of diabetes mellitus; Z82.49 Family history of ischemic heart disease and other diseases of the circulatory system; K59.00 Constipation, unspecified; F41.9 Anxiety disorder, unspecified; I50.9 Heart failure, unspecified; Z88.2 Allergy status to sulfonamides; Z88.1 Allergy status to other antibiotic agents; Z88.0 Allergy status to penicillin; Z79.899 Other long term (current) drug therapy; Z88.5 Allergy status to narcotic agent; Z79.82 Long term (current) use of aspirin; Z79.4 Long term (current) use of insulin; Z98.890 Other specified postprocedural states; B95.61 Methicillin susceptible Staphylococcus aureus infection as the cause of diseases classified elsewhere
CPT/HCPCS: 71010; 74000; 74176; 80053; 80069; 81001; 82962; 83690; 83735; 85025; 87040; 87086; 93005; 96374; 97110-GP; 97162-GP; 99285; A9270-GY; G0257; G0463; G8978-CN-GP; G8979-CM-GP; J0690; J2185; J2405; J2550; P9047